=== PATIENT | female | born 1940 | race Caucasian/White ===

== ENCOUNTER 2016-09-19 06:58 | Inpatient (IN) | payer OTHER, BC ==
[2016-09-19] MEDS ORDERED: ALBUTEROL SO4 2.5/IPRATROPIUM 0.5 INH SOL 3 ML VIAL.NEB. NEB ONE ×4 (07:01→09:51)
--- NOTE | 2016-09-19 07:07 | PDOC ---
History of Present Illness - General Chief Complaint: Respiratory Stated Complaint: COPD, SOB Time Seen by Provider: 09/19/16 07:00 History Source: Patient, EMS Exam Limitations: No Limitations - History of Present Illness Initial Comments: 09/19/16 07:02 76 y/o female with increase SOB over last 4 days. Was seen by her PMD and placed on a Z-pack. Pt with cough. Denies fever or chills. No N/V/D/C. No back pain oo chest pain. Brought in via EMS with increase SOB. Given Duoneb x2 and Soulmedrol 125 mg IV before arrival. Patient states to be doing a little better. Timing/Duration: reports: getting worse Severity: reports: moderate Past History - Past Medical History Allergies/Adverse Reactions: Allergies Allergy/AdvReac Type Severity Reaction Status Date / Time Penicillins Allergy Verified 04/17/16 06:23 strawberry Allergy Verified 04/19/16 15:59 Penicillins Allergy Uncoded 09/14/11 09:30 Home Medications: Ambulatory Orders Aspirin [ASA -] 81 mg PO DAILY 03/02/16 Albuterol 2.5/Ipratropium 0.5 [Duoneb -] 1 amp NEB QIDR #10 amp 04/22/16 Amlodipine Besylate [Norvasc -] 5 mg PO DAILY #60 tablet 04/22/16 Montelukast Na [Singulair -] 10 mg PO HS #60 tablet 04/22/16 Escitalopram Oxalate 10 mg PO DAILY #0 tablet 09/17/16 Pantoprazole Sodium 40 mg PO DAILY 09/17/16 Anemia: No Asthma: No Cancer: Yes (BLADDER CANCER) Cardiac Disorders: Yes CVA: No COPD: Yes (HOME O2 AT NIGHT,) CHF: No Dementia: No Diabetes: No GI Disorders: No Disorders: Yes (BLADDER CANCER treated with chemo wash) HTN: No Hypercholesterolemia: Yes Liver Disease: No Psychiatric Problems: Yes (anxiety) Seizures: No Thyroid Disease: No - Surgical History Abdominal Surgery: No Appendectomy: Yes ( CHILD) Cardiac Surgery: No Cholecystectomy: No Lung Surgery: No Neurologic Surgery: No Orthopedic Surgery: Yes (LEFT FOOT SURGERY, r hip surgery) - Family Disease History Family Disease History: Heart Disease: Mother - Reproductive History Dysfunctional Uterine Bleeding: No - Immunization History Immunization Up to Date: Yes - Psycho/Social/Smoking Cessation Hx Anxiety: Yes Suicidal Ideation: No Smoking Status: No Smoking History: Former smoker Years of Tobacco Use: 20 Have you smoked in the past 12 months: Yes Number of Cigarettes Smoked Daily: 1 If you are a former smoker, when did you quit?: 2015 Cigars Per Day: 0 'Breaking Loose' booklet given: 04/17/16 Hx Alcohol Use: No Drug/Substance Use Hx: No Substance Use Type: None Hx Substance Use Treatment: No Review of Systems - Review of Systems Able to Perform ROS?: Yes Is the patient limited Romanian proficient: No Constitutional: No: Chills, Fever, Malaise HEENTM: No: Nose Congestion Respiratory: Yes: Cough, Shortness of Breath, Wheezing. No: Productive cough Cardiac (ROS): No: Chest Pain, Edema, Palpitations, Chest Tightness ABD/GI: No: Diarrhea, Nausea, Vomiting : No: Burning, Dysuria Musculoskeletal: No: Back Pain Neurological: No: Headache, Numbness, Paresthesia All Other Systems: Reviewed and Negative *Physical Exam - Physical Exam General Appearance: Yes: Nourished, Appropriately Dressed, Apparent Distress, Moderate Distress. No: Mild Distress HEENT: positive: EOMI, JR, Normal ENT Inspection, Pharynx Normal. negative: Nasal Congestion, Rhinorrhea, Sinus Tenderness Neck: positive: Trachea midline, Normal Thyroid, Supple. negative: Rigid Respiratory/Chest: positive: Respiratory Distress, Wheezing. negative: Lungs Clear (expiratory wheezing mild, decrease BS b/l on the left), Normal Breath Sounds, Accessory Muscle Use Cardiovascular: positive: Regular Rhythm, S1, S2, Tachycardia. negative: Regular Rate Gastrointestinal/Abdominal: positive: Normal Bowel Sounds, Flat, Soft. negative : Tender, Organomegaly, Pulsatile Mass Lymphatic: negative: Adenopathy, Tenderness, Other Musculoskeletal: positive: Normal Inspection. negative: CVA Tenderness Extremity: positive: Normal Capillary Refill, Normal Inspection, Normal Range of Motion Integumentary: positive: Normal Color, Warm Neurologic: positive: public policy mediator II-XII NML intact, Fully Oriented, Alert, Normal Mood/ Affect (strength 5+/5 b/l in UE and LE, no focal deficits noted), Normal Response, Motor Strength 5/5 Heart Score/ECG Review - ECG Intrepretation Comment:: 09/19/16 07:17 tachycardic 105 - ST and T Non Specific ST-T Wave changes: Yes ED Treatment Course - LABORATORY CBC & Chemistry Diagram: 09/19/16 07:01 09/19/16 07:01 - RADIOLOGY Radiology Studies Ordered: Category Date Time Status CHEST X-RAY PORTABLE* [RAD] Stat Radiology 09/19/16 07:01 Ordered 09/19/16 07:59 CXR, RLL pneumonia, however official read in NAD, unchanged. After DuoNeb treatment pt is feeling better. Will call Hospitalist and admit for pneumonia and COPD exacerbation 09/19/16 08:34 Spoke with Nica, will admit pt for COPD exacerbation, ? early RLL pneumonia Admit to Dr. Monroy service Pt is in agreement with plan. 09/19/16 08:38 *DC/Admit/Observation/Transfer Diagnosis at time of Disposition: COPD with acute exacerbation Pneumonia Qualifiers: Pneumonia type: due to unspecified organism Laterality: right Lung location: lower lobe of lung Qualified Code(s): J18.1 - Lobar pneumonia, unspecified organism - Discharge Dispostion Condition at time of disposition: Guarded Admit: Yes - Referrals Referrals: Cameron Floyd MD [Primary Care Provider] -
[2016-09-19 07:12] VITALS: BMI 24.4
[2016-09-19] MEDS ORDERED: ACETAMINOPHEN 325 MG TABLET (FP) PO ONE (07:15)
[2016-09-19] MEDS ORDERED: ACETAMINOPHEN 325 MG TABLET (FP) ONE (07:16)
[2016-09-19] MEDS ORDERED: LEVOFLOXACIN 750 MG IVPB 150 ML IVPB ONE ×2 (07:42→07:43)
[2016-09-19 07:56] LABS: EOSINOPHIL 2.9 % (0-4.5); MCH 30.1 pg (25.7-33.7); MEAN CELL VOLUME 88.3 fl (80-96); NEUTROPHILS 59.8 % (42.8-82.8); PLATELET COUNT 216 K/MM3 (134-434); RDW 13.6 % (11.6-15.6); WHITE BLOOD COUNT 6.8 K/mm3 (4.0-10.0)
[2016-09-19 08:06] LABS: ALK PHOS 79 U/L (32-92); ANION GAP 5 (8-16); BILIRUBIN,TOTAL 0.4 mg/dl (0.2-1.0); CALCIUM 8.5 mg/dl (8.4-10.2); CO2 29 mmol/L (22-28); CPK(DFH) 103 IU/L (26-140); CREATININE 0.8 mg/dl (0.6-1.3); GLUCOSE,RANDOM 169 mg/dl (74-106); SGOT/AST 28 U/L (10-42); SGPT/ALT 19 U/L (10-40); TOT PROT 6.5 g/dl (6.4-8.3)
[2016-09-19 08:22] LABS: TROPONIN I (DFP) < 0.03 ng/ml (0.03-0.50)
[2016-09-19] MEDS ORDERED: ONDANSETRON 4 MG/2 ML VIAL IVPB PRN (08:44)
[2016-09-19] MEDS ORDERED: ACETAMINOPHEN 325 MG TABLET (FP) PO PRN (08:44)
--- NOTE | 2016-09-19 08:51 | HP ---
CHIEF COMPLAINT: Shortness of breath PCP: Dr. Floyd Campaign Marketing Manager: Dr. Deluca HISTORY OF PRESENT ILLNESS: This is a 76 year old female with a history of COPD and bladder ca (in remission) who presented to the ED today with shortness of breath. She had been coughing and feeling progressively short of breath for the past four days and was started on azithromycin by her PCP, but overnight became suddenly worse, prompting her to present to the ED today. She denies fevers/ chills, chest pain, LE edema, any other symptoms. ER course was notable for: (1) EKG: Sinus tachycardia 105bpm (2) CXR: No infiltrate (3) RR 26 on arrival (4) Oral temp 100.2 Recent Travel: None PAST MEDICAL HISTORY: As above PAST SURGICAL HISTORY: Hip replacement Social History: Lives in two-family house with daughter, who helps with ADLs. 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 Smokin pack-year history Alcohol: None Family History: Brother of MD at 83, mother had CABG, father of MD at 84 Allergies Penicillins Allergy (Verified 04/17/16 06:23) strawberry Allergy (Verified 04/19/16 15:59) Penicillins Allergy (Uncoded 09/14/11 09:30) HOME MEDICATIONS: Home Medications Medication Instructions Recorded Aspirin [ASA -] 81 mg PO DAILY 03/02/16 Albuterol 2.5/Ipratropium 0.5 1 amp [facility] QIDR #10 amp 04/22/16 [Duoneb -] Amlodipine Besylate [Norvasc -] 5 mg PO DAILY #60 tablet 04/22/16 Montelukast Na [Singulair -] 10 mg PO HS #60 tablet 04/22/16 Escitalopram Oxalate 10 mg PO DAILY #0 tablet 09/17/16 Pantoprazole Sodium 40 mg PO DAILY 09/17/16 REVIEW OF SYSTEMS CONSTITUTIONAL: Absent: fever, chills, diaphoresis, generalized weakness, malaise, loss of appetite, weight change HEENT: Absent: rhinorrhea, nasal congestion, throat pain, throat swelling, difficulty swallowing, mouth swelling, ear pain, eye pain, visual changes CARDIOVASCULAR: Absent: chest pain, syncope, palpitations, irregular heart rate, lightheadedness , peripheral edema RESPIRATORY: See HPI GASTROINTESTINAL: Absent: abdominal pain, abdominal distension, nausea, vomiting, diarrhea, constipation, melena, hematochezia GENITOURINARY: Absent: dysuria, frequency, urgency, hesitancy, hematuria, flank pain, genital pain MUSCULOSKELETAL: Absent: myalgia, arthralgia, joint swelling, back pain, neck pain SKIN: Absent: rash, itching, pallor HEMATOLOGIC/IMMUNOLOGIC: Absent: easy bleeding, easy bruising, lymphadenopathy, frequent infections ENDOCRINE: Absent: unexplained weight gain, unexplained weight loss, heat intolerance, cold intolerance NEUROLOGIC: Absent: headache, focal weakness or paresthesias, dizziness, unsteady gait, seizure, mental status changes, bladder or bowel incontinence PSYCHIATRIC: Anxiety Absent: depression, suicidal or homicidal ideation, hallucinations. PHYSICAL EXAMINATION Vital Signs - 24 hr 09/19/16 09/19/16 07:08 07:48 Temperature 100.2 F H 100.2 F H Pulse Rate 105 H Pulse Rate [ 110 H Left] Respiratory 26 H 22 Rate Blood Pressure 150/79 Blood Pressure 92/74 [Right Arm] O2 Sat by Pulse 100 99 Oximetry (%) GENERAL: Awake, alert, and fully oriented, in no acute distress. EYES: Pupils equal, round and reactive to light, extraocular movements intact, sclera anicteric, conjunctiva clear. No lid lag. EARS, NOSE, THROAT: Ears normal, nares patent, oropharynx clear without exudates. Moist mucous membranes. NECK: Normal range of motion, supple without lymphadenopathy, JVD, or masses. LUNGS: Tachypneic with pursed-lip breathing. Expiratory wheezing with diminished air entry bilaterally. HEART: Regular rate and rhythm, normal S1 and S2 without murmur, rub or gallop. ABDOMEN: Soft, nontender, not distended, normoactive bowel sounds, no guarding, no rebound, no masses. No hepatomegaly or splenomegaly. MUSCULOSKELETAL: Normal range of motion at all joints. No bony deformities or tenderness. No CVA tenderness. UPPER EXTREMITIES: 2+ pulses, warm, well-perfused. No cyanosis. No clubbing. No peripheral edema. LOWER EXTREMITIES: 2+ pulses, warm, well-perfused. No calf tenderness. Trace RLE edema, + calf tenderness bilaterally. NEUROLOGICAL: Cranial nerves II-XII intact. Normal speech. Normal gait. PSYCHIATRIC: Anxious affect. Cooperative. Good eye contact. SKIN: Warm, dry, normal turgor, no rashes or lesions noted, normal capillary refill. Laboratory Results - last 24 hr 09/19/16 09/19/16 09/19/16 07:01 07:01 07:01 WBC 6.8 RBC 4.29 Hgb 12.9 Hct 37.9 MCV 88.3 MCHC 34.0 RDW 13.6 Plt Count 216 MPV 8.0 Neutrophils % 59.8 D Lymphocytes % 26.3 D Monocytes % 10.0 Eosinophils % 2.9 D Basophils % 1.0 D Sodium 138 Potassium 3.6 Chloride 104 Carbon Dioxide 29 H Anion Gap 5 L BUN 12 D Creatinine 0.8 D Creat Clearance w eGFR > 60 Random Glucose 169 H D Calcium 8.5 Total Bilirubin 0.4 AST 28 D ALT 19 D Alkaline Phosphatase 79 D Creatine Kinase 103 Troponin I < 0.03 L Total Protein 6.5 Albumin 4.0 ASSESSMENT/PLAN: 76 year old female with COPD exacerbation and likely URI. Problem List - Problem (1) COPD with acute exacerbation Assessment/Plan: -DuoNebs q6h standing -Hold Spiriva while on DuoNebs -Continue Singulair, Symbicort -Solu-Medrol 40mg IVPB q8h, taper as tolerated -Low grade fever; possible CAP- continue Levaquin -Pulmonary consultation requested Code(s): J44.1 - CHRONIC OBSTRUCTIVE PULMONARY DISEASE W (ACUTE) EXACERBATION (2) Pneumonia Assessment/Plan: -Suspected -Treat as above -Send sputum culture, urine antigens -Follow up blood cultures Code(s): J18.9 - PNEUMONIA, UNSPECIFIED ORGANISM Qualifiers: Pneumonia type: due to unspecified organism Laterality: right Lung location: lower lobe of lung Qualified Code(s): J18.1 - Lobar pneumonia, unspecified organism (3) Anxiety Assessment/Plan: -Klonopin 0.5mg q6h prn Code(s): F41.9 - ANXIETY DISORDER, UNSPECIFIED (4) Bladder cancer Assessment/Plan: -No active issues Code(s): C67.9 - MALIGNANT NEOPLASM OF BLADDER, UNSPECIFIED Qualifiers: Bladder location: unspecified site Qualified Code(s): C67.9 - Malignant neoplasm of bladder, unspecified (5) Elevated lactic acid level Assessment/Plan: -Repeat this afternoon Code(s): R79.89 - OTHER SPECIFIED ABNORMAL FINDINGS OF BLOOD CHEMISTRY (6) DVT prophylaxis Assessment/Plan: -Ambulation with PT -Lovenox ADDENDM 15:45: Patient tachypneic with poor air movement. SpO2 is 100% on 3L. Will give stat DuoNeb, MgSO4, reassess. There is some asymmetric LE edema and HR is 116; will obtain bilat duplex u/s to r/o DVT. Trial of Bi-pap. Re- evaluation by night team. Code(s): MIT5101 - Visit type - Emergency Visit Emergency Visit: Yes ED Registration Date: 09/19/16 Care time: The patient presented to the Emergency Department on the above date and was hospitalized for further evaluation of their emergent condition. - New Patient This patient is new to me today: Yes Date on this admission: 09/19/16 - Critical Care Critical Care patient: No
[2016-09-19] MEDS ORDERED: BUDESONIDE/FORMETEROL FUMARATE 160/4.5 mcg INHALER IH SCH (09:00)
[2016-09-19] MEDS ORDERED: SODIUM CHLORIDE 0.9% 1000 ML INFUS.BAG IV SCH (09:15)
[2016-09-19] MEDS ORDERED: ALPRAZolam 0.25 MG TABLET PO STA (09:51)
[2016-09-19] MEDS ORDERED: ALPRAZolam 0.25 MG TABLET ONE (09:52)
[2016-09-19] MEDS ORDERED: TIOTROPIUM BROMIDE 18 MCG/INH (DEVICE W/ 5 CAPSULES) IH SCH (10:00)
[2016-09-19] MEDS ORDERED: clonazePAM 0.5 MG TABLET PO PRN (11:03)
[2016-09-19] MEDS: ALBUTEROL SO4 2.5/IPRATROPIUM 0.5 INH SOL 3 ML VIAL.NEB. NEB SCH ×2 (12:00→17:49)
[2016-09-19] MEDS: HEPARIN NA (PORCINE) 5,000 UNITS/ML 1ML VIAL SQ SCH (12:30)
[2016-09-19] MEDS: ESCITALOPRAM OXALATE 10 MG TABLET (FP) PO SCH (12:30)
[2016-09-19] MEDS: ASPIRIN 81 MG CHEWABLE TABLETS PO SCH (12:30)
[2016-09-19] MEDS: PANTOPRAZOLE 40 MG TABLET (FP) PO SCH (12:45)
[2016-09-19] MEDS: DOCUSATE SODIUM 100 MG CAPSULE (FP) PO SCH ×2 (14:00→21:43)
[2016-09-19] MEDS ORDERED: MAGNESIUM SULF 50% (8.12 MEQ/2 ML-1 GM VIAL) IVPB ONE (15:46)
[2016-09-19 16:15] LABS: URINE APPEARANCE Clear; URINE BILIRUBIN Negative (NEGATIVE); URINE GLUCOSE (UA) 3+ (NEGATIVE); URINE KETONE Negative (NEGATIVE); URINE LEUK ESTERASE Negative (NEGATIVE); URINE NITRITE Negative (NEGATIVE); URINE PROTEIN Negative (NEGATIVE); URINE UROBILINOGEN 0.2 E.U/dl (0.2-1.0)
[2016-09-19 16:28] LABS: URINE BLOOD TRACE (NEGATIVE); URINE COLOR YELLOW
[2016-09-19 17:16] LABS: URINE HYALINE CAST 0-1 /lpf; URINE WBC 0-3 (3-5)
[2016-09-19] MEDS: methylPREDNISolone NA SUCC 40 MG/1 ML VIAL IVPB SCH (17:50)
[2016-09-19] MEDS ORDERED: RACEPINEPHRINE IH SOL 2.25% 11.25 MG/0.5 ML VIAL IH ONE (17:51)
[2016-09-19] MEDS: ATORVASTATIN CA 10 MG TABLET (FP) PO SCH (21:44)
[2016-09-19] MEDS: MONTELUKAST NA 10 MG TABLET PO SCH (21:44)
[2016-09-20] MEDS ORDERED: SODIUM CHLORIDE 500 ML IV STA (01:25)
[2016-09-20] MEDS: methylPREDNISolone NA SUCC 40 MG/1 ML VIAL IVPB SCH ×4 (02:04→23:07)
[2016-09-20] MEDS: ALBUTEROL SO4 2.5/IPRATROPIUM 0.5 INH SOL 3 ML VIAL.NEB. NEB SCH ×2 (02:05→06:56)
[2016-09-20] MEDS: HEPARIN NA (PORCINE) 5,000 UNITS/ML 1ML VIAL SQ SCH (02:06)
[2016-09-20] MEDS: DOCUSATE SODIUM 100 MG CAPSULE (FP) PO SCH ×3 (06:56→23:07)
--- NOTE | 2016-09-20 08:39 | PN ---
Physical Exam: SUBJECTIVE: Patient seen and examined, pt is on bipap reports shortness of breath, pt denies any chest pain OBJECTIVE: patient is a 76 year old female with a history of COPD and bladder ca (in remission). patient was admitted from the emergency department for COPD exacerbation Vital Signs Period Temp Pulse Resp BP Sys/Almeida Pulse Ox Last 24 Hr 97.6 F-99.2 F 77-109 16-22 112-141/51-64 98-100 GENERAL: The patient is awake, alert, and fully oriented, anxious. HEAD: Normal with no signs of trauma. EYES: PERRL, extraocular movements intact, sclera anicteric, conjunctiva clear. No ptosis. ENT: Ears normal, nares patent, oropharynx clear without exudates, moist mucous membranes. NECK: Trachea midline, full range of motion, supple. LUNGS: Breath sounds equal, course rhonchi bilaterally to apexes diminished bases slight inspiratory wheeze noted no crackles, no accessory muscle use. HEART: Regular rate and rhythm, S1, S2 without murmur, rub or gallop. ABDOMEN: Soft, nontender, nondistended, normoactive bowel sounds, no guarding, no rebound, no hepatosplenomegaly, no masses. EXTREMITIES: 2+ pulses, warm, well-perfused, no edema. NEUROLOGICAL: Cranial nerves II through XII grossly intact. Normal speech, gait not observed. PSYCH: Normal mood, normal affect. SKIN: Warm, dry, normal turgor, no rashes or lesions noted Laboratory Results - last 24 hr 09/19/16 09/19/16 09/19/16 16:00 16:50 22:55 D-Dimer < 200 Lactic Acid 2.418 H* Urine Color Yellow Urine Appearance Clear Urine pH 5.0 Ur Specific [place] 1.015 Urine Protein Negative Urine Glucose (UA) 3+ H Urine Ketones Negative Urine Blood Trace H Urine Nitrite Negative Urine Bilirubin Negative Urine Urobilinogen 0.2 e.u/dl Ur Leukocyte Esterase Negative Urine RBC 3-5 Urine WBC 0-3 Ur Epithelial Cells 0-3 Hyaline Casts 0-1 09/20/16 02:00 D-Dimer Lactic Acid 1.151 Urine Color Urine Appearance Urine pH Ur Specific [place] Urine Protein Urine Glucose (UA) Urine Ketones Urine Blood Urine Nitrite Urine Bilirubin Urine Urobilinogen Ur Leukocyte Esterase Urine RBC Urine WBC Ur Epithelial Cells Hyaline Casts Active Medications Active Medications Generic Name Dose Route Start Last Admin Trade Name Freq PRN Reason Stop Dose Admin Acetaminophen 650 mg 09/19/16 08:44 Tylenol - PO Q6H PRN FEVER OR PAIN Alprazolam 0.25 mg 09/20/16 10:13 Xanax - PO Q8H PRN ANXIETY Amlodipine Besylate 5 mg 09/19/16 10:00 Norvasc - PO DAILY KAREN Arformoterol Tartrate 1 amp 09/20/16 10:00 09/20/16 09:22 Brovana (Restricted To Pulmonology/Resp) - NEB 1 amp BID KAREN Administration Aspirin 81 mg 09/19/16 12:30 09/19/16 12:30 Asa - PO 81 mg DAILY KAREN Administration Atorvastatin Calcium 10 mg 09/19/16 22:00 09/19/16 21:44 Lipitor - PO 10 mg HS KAREN Administration Docusate Sodium 100 mg 09/19/16 14:00 09/20/16 06:56 Colace - PO 100 mg TID KAREN Administration Escitalopram Oxalate 10 mg 09/19/16 12:30 09/19/16 12:30 Lexapro - PO 10 mg DAILY KAREN Administration Heparin Sodium (Porcine) 5,000 unit 09/19/16 12:30 09/20/16 02:06 Heparin - SQ 5,000 unit Q8H-IV KAREN Administration Levofloxacin 150 mls @ 100 mls/hr 09/20/16 10:00 Levaquin 750 Mg Premixed Ivpb - IVPB DAILY KAREN Methylprednisolone Sodium Succinate 40 mg 09/20/16 09:00 Solu-Medrol - IVPB Q6H-IV KAREN Montelukast Sodium 10 mg 09/19/16 22:00 09/19/16 21:44 Singulair - PO 10 mg HS KAREN Administration Ondansetron HCl 4 mg 09/19/16 08:44 Zofran Injection IVPB Q6H PRN NAUSEA Pantoprazole Sodium 40 mg 09/19/16 12:45 09/19/16 12:45 Protonix - PO 40 mg DAILY KAREN Administration Sodium Chloride 1,701 ml 09/19/16 09:15 09/19/16 09:18 Normal Saline - IV 1,701 ml ONCE KAREN Administration Microbiology 09/19/16 16:00 Urine For Antigen Detection Legionella Antigen - Final, negative 09/19/16 16:00 Urine For Antigen Detection Streptococcus pneumoniae Antigen (M - Final, negative 09/19/16 07:11 Blood - Peripheral Venous Blood Culture - Preliminary NO GROWTH OBTAINED AFTER 24 HOURS, INCUBATION TO CONTINUE FOR 4 DAYS. 09/19/16 07:11 Blood - Peripheral Venous Blood Culture - Preliminary NO GROWTH OBTAINED AFTER 24 HOURS, INCUBATION TO CONTINUE FOR 4 DAYS. 09/19/16 09:45 Nasopharyngeal Swab Respiratory Virus Panel - Preliminary 09/19/16 09:45 Nasopharyngeal Swab Influenza Types A,B Antigen (NAJMA) - Final , negative 09/19/16 09:45 Nasopharyngeal Swab - Final IMAGING chest x-ray (09/20/2016) no effusions no infiltrates noted Bilateral lower extremity duplex no DVT noted. ASSESSMENT/PLAN: 1 pulmonary: COPD exacerbation - Wheezing noted on exam tachypnea noted will increase Solu-Medrol to every 6 hours - start broVona - continue prn bipap - pulmonary consulted and following PNA - repeat chest x-ray today in no infiltrates no effusions noted - Treating for suspected bronchitis continue Levaquin - Her fever curve 2) psych anxiety - xanax 0.25mg tid prn f/e/n - full liquid diet - Replete electrolytes when necessary PPX - scd - pt - lovenox - protonix - oob - pt dispo: requires inpatient care Visit type - Emergency Visit Emergency Visit: Yes ED Registration Date: 09/19/16 Care time: The patient presented to the Emergency Department on the above date and was hospitalized for further evaluation of their emergent condition. - New Patient This patient is new to me today: No - Critical Care Critical Care patient: No - Discharge Referral Referred to [facility] No
[2016-09-20 08:54] LABS: ALBUMIN 3.7 g/dl (3.5-5.0); ALK PHOS 64 U/L (32-92); CALCIUM 8.2 mg/dl (8.4-10.2); COCKROFT - GAULT 69.1645; CREATININE 0.6 mg/dl (0.6-1.3); GLUCOSE,RANDOM 214 mg/dl (74-106); MAGNESIUM 2.4 mg/dL (1.8-2.4); SGOT/AST 25 U/L (10-42); SGPT/ALT 19 U/L (10-40); TOT PROT 6.1 g/dl (6.4-8.3)
--- NOTE | 2016-09-20 09:07 | EKG ---
Test Reason : Blood Pressure : / mmHG Vent. Rate : 105 BPM Atrial Rate : 105 BPM P-R Int : 112 ms QRS Dur : 094 ms QT Int : 344 ms P-R-T Axes : 069 068 086 degrees QTc Int : 454 ms SINUS TACHYCARDIA POSSIBLE LEFT ATRIAL ENLARGEMENT NONSPECIFIC ST AND T WAVE ABNORMALITY ABNORMAL ECG WHEN COMPARED WITH ECG OF 17-APR-2016 07:04, NO SIGNIFICANT CHANGE WAS FOUND Confirmed by HERNANDO CROUCH MD ([id number]) on 09/20/2016 9:07:37 AM Referred By: MD POWERS Confirmed By:HERNANDO CROUCH MD
[2016-09-20 09:14] LABS: BASOPHIL 0.2 % (0-2.0); MCH 30.5 pg (25.7-33.7); MCHC 35.1 g/dl (32.0-36.0); MEAN CELL VOLUME 87.1 fl (80-96); MEAN PLT VOLUME 8.3 fl (7.5-11.1); PLATELET COUNT 184 K/MM3 (134-434); RDW 13.5 % (11.6-15.6); WHITE BLOOD COUNT 5.5 K/mm3 (4.0-10.0)
[2016-09-20] MEDS: ARFORMOTEROL TARTRATE 15 MCG/2 ML VIAL NEB SCH ×2 (09:22→23:05)
[2016-09-20] MEDS: ESCITALOPRAM OXALATE 10 MG TABLET (FP) PO SCH (10:00)
[2016-09-20] MEDS: PANTOPRAZOLE 40 MG TABLET (FP) PO SCH (10:00)
[2016-09-20] MEDS: amLODIPine BESYLATE 5 MG TABLET (FP) PO SCH (10:00)
[2016-09-20] MEDS: ASPIRIN 81 MG CHEWABLE TABLETS PO SCH (10:00)
[2016-09-20] MEDS: LEVOFLOXACIN 750 MG IVPB 150 ML IVPB SCH (10:00)
--- NOTE | 2016-09-20 10:12 | PN ---
Progress Note (short form) - Note Progress Note: PULMONARY CONSULTATION DICTATED 09/20/16 IMP ACUTE ON CHRONIC HYPOXEMIC RESPIRATORY FAILURE ADVANCED COPD URI H/O BLADDER CA ELEVATED LACTATE ANXIETY PLAN IV STEROIDS INHALED BRONCHODILATORS ANTIBIOTICS O2 BIPAP TREND LACTATE XANAX PRN DR SAAB Problem List - Problems (1) COPD with acute exacerbation Code(s): J44.1 - CHRONIC OBSTRUCTIVE PULMONARY DISEASE W (ACUTE) EXACERBATION (2) DVT prophylaxis Code(s): [id number] - (3) Elevated lactic acid level Code(s): R79.89 - OTHER SPECIFIED ABNORMAL FINDINGS OF BLOOD CHEMISTRY (4) Anxiety Code(s): F41.9 - ANXIETY DISORDER, UNSPECIFIED (5) Bladder cancer Code(s): C67.9 - MALIGNANT NEOPLASM OF BLADDER, UNSPECIFIED Qualifiers: Bladder location: unspecified site Qualified Code(s): C67.9 - Malignant neoplasm of bladder, unspecified (6) Acute hypoxemic respiratory failure Code(s): J96.01 - ACUTE RESPIRATORY FAILURE WITH HYPOXIA
[2016-09-20 10:14] LABS: BILIRUBIN,TOTAL 0.3 mg/dl (0.2-1.0)
[2016-09-20 10:15] LABS: ANION GAP 9 (8-16); CO2 23 mmol/L (22-28)
--- NOTE | 2016-09-20 10:19 | PN ---
Progress Note, Physician History of Present Illness: PULMONARY ALERT,OOB-CHAIR,LESS DYSPNEIC,STILL MILDLY CONGESTED - Current Medication List Current Medications: Active Medications Acetaminophen (Tylenol -) 650 mg PO Q6H PRN PRN Reason: FEVER OR PAIN Amlodipine Besylate (Norvasc -) 5 mg PO DAILY [facility] Arformoterol Tartrate (Brovana (Restricted To Pulmonology/Resp) -) 1 amp NEB BID [facility] Last Admin: 09/20/16 09:22 Dose: 1 amp Aspirin (Asa -) 81 mg PO DAILY [facility] Last Admin: 09/19/16 12:30 Dose: 81 mg Atorvastatin Calcium (Lipitor -) 10 mg PO HS [facility] Last Admin: 09/19/16 21:44 Dose: 10 mg Docusate Sodium (Colace -) 100 mg PO TID [facility] Last Admin: 09/20/16 06:56 Dose: 100 mg Escitalopram Oxalate (Lexapro -) 10 mg PO DAILY [facility] Last Admin: 09/19/16 12:30 Dose: 10 mg Heparin Sodium (Porcine) (Heparin -) 5,000 unit SQ Q8H-IV [facility] Last Admin: 09/20/16 02:06 Dose: 5,000 unit Levofloxacin (Levaquin 750 Mg Premixed Ivpb -) 150 mls @ 100 mls/hr IVPB DAILY [facility] Methylprednisolone Sodium Succinate (Solu-Medrol -) 40 mg IVPB Q6H-IV [facility] Montelukast Sodium (Singulair -) 10 mg PO HS [facility] Last Admin: 09/19/16 21:44 Dose: 10 mg Ondansetron HCl (Zofran Injection) 4 mg IVPB Q6H PRN PRN Reason: NAUSEA Pantoprazole Sodium (Protonix -) 40 mg PO DAILY [facility] Last Admin: 09/19/16 12:45 Dose: 40 mg Sodium Chloride (Normal Saline -) 1,701 ml IV ONCE [facility] Last Admin: 09/19/16 09:18 Dose: 1,701 ml - Objective Vital Signs: Vital Signs Temperature 97.6 F 09/20/16 06:00 Pulse Rate 77 09/20/16 06:00 Respiratory Rate 18 09/20/16 09:00 Blood Pressure 118/63 09/20/16 06:00 O2 Sat by Pulse Oximetry (%) 100 09/20/16 06:05 Constitutional: Yes: Well Nourished, Calm Eyes: Yes: WNL HENT: Yes: WNL Neck: Yes: WNL Cardiovascular: Yes: Regular Rate and Rhythm, S1, S2 Respiratory: Yes: Wheezes (EDUARD WHEEZES) Gastrointestinal: Yes: Normal Bowel Sounds, Soft Extremities: Yes: WNL Edema: No Labs: CBC, BMP 09/20/16 08:00 Problem List - Problems (1) COPD with acute exacerbation Code(s): J44.1 - CHRONIC OBSTRUCTIVE PULMONARY DISEASE W (ACUTE) EXACERBATION (2) DVT prophylaxis Code(s): [id number] - (3) Elevated lactic acid level Code(s): R79.89 - OTHER SPECIFIED ABNORMAL FINDINGS OF BLOOD CHEMISTRY (4) Anxiety Code(s): F41.9 - ANXIETY DISORDER, UNSPECIFIED (5) Bladder cancer Code(s): C67.9 - MALIGNANT NEOPLASM OF BLADDER, UNSPECIFIED Qualifiers: Bladder location: unspecified site Qualified Code(s): C67.9 - Malignant neoplasm of bladder, unspecified (6) Acute hypoxemic respiratory failure Code(s): J96.01 - ACUTE RESPIRATORY FAILURE WITH HYPOXIA
--- NOTE | 2016-09-20 11:31 | CONS ---
DATE OF CONSULTATION: 09/20/2016 REFERRING PHYSICIAN: Piper Morris NP HISTORY: The patient is a 76-year-old white female known from previous hospitalizations as well as office follow up who has advanced COPD on O2, history of bladder cancer currently in remission admitted to [facility] with the complaint of a 2-day history of increasing shortness of breath, cough productive of yellowish sputum as well as intermittent chills and fever. The patient did not complain of any chest pain, nausea, vomiting, or diaphoresis. Apparently, she was placed on Zithromax by her primary care. Apparently, the evening of admission her symptoms worsened at which time she presented to the emergency room. In the emergency room, she was noted to be mildly febrile with a temperature of 100.2. She was found to be in [id number] respiratory distress at which time she was placed on BiPAP with good response. The patient denies hemoptysis, denies any chest pain. Some palpitations. Denies any nausea, vomiting, or diaphoresis. She has a history of tobacco use a few years ago. There is no history of occupational exposure to chemicals or fumes. PAST MEDICAL HISTORY: Again includes advanced COPD on O2, history of hip replacement, history of bladder cancer. CURRENT MEDICATIONS: Includes Zofran, Solu-Medrol, Tylenol, Levaquin, Lexapro, Klonopin, Brovana, Colace, Norvasc, Lipitor, Singulair, aspirin, Protonix. REVIEW OF SYSTEMS: Positive dyspnea, positive cough. No chest pain, no palpitations, no abdominal pain. Positive fever, positive chills. No hemoptysis. PHYSICAL EXAMINATION: General: The patient is an elderly white female, thin, well developed, awake, alert. Currently on BiPAP. She is comfortable. Vital Signs: She is currently afebrile, blood pressure 118/63, respiratory rate 18, O2 saturation 100%. HEENT: Normocephalic and atraumatic. Neck: Supple. Heart: Regular S1, S2. Chest: Diminished breath sounds bilaterally. Abdomen: Soft. Bowel sounds positive. Extremities: No cyanosis or edema. DIAGNOSTICS: WBCs 5.5, hemoglobin 11.4, hematocrit 32.5 with a platelet count of 184,000. Lactate level is 2.41, D-dimer less than 200. Chest x-ray reveals no infiltrates, no effusions. IMPRESSION: 1. Acute on chronic hypoxemic respiratory failure secondary to decompensated chronic obstructive pulmonary disease. 2. Possible underlying infectious process, possible viral, upper respiratory infection. 3. History of bladder cancer. 4. Elevated lactate most likely secondary to work of breathing. PLAN: IV steroids. Inhaled bronchodilators. Supplemental O2 via BiPAP as needed. Antibiotic therapy. Trend lactate. I will follow closely with you. EMILIANO SAAB M.D. ANA [id number]
[2016-09-20] MEDS: ALPRAZolam 0.25 MG TABLET PO PRN (18:00)
[2016-09-20] MEDS: ALBUTEROL SO4 0.083% IH SOL 2.5 MG/3 ML VIAL.NEB. NEB PRN (18:00)
[2016-09-20] MEDS: ATORVASTATIN CA 10 MG TABLET (FP) PO SCH (23:06)
[2016-09-20] MEDS: MONTELUKAST NA 10 MG TABLET PO SCH (23:06)
[2016-09-21] MEDS: methylPREDNISolone NA SUCC 40 MG/1 ML VIAL IVPB SCH ×4 (03:00→21:37)
[2016-09-21] MEDS: DOCUSATE SODIUM 100 MG CAPSULE (FP) PO SCH ×3 (06:00→21:37)
[2016-09-21 08:39] LABS: BASOPHIL 0.2 % (0-2.0); MCH 29.9 pg (25.7-33.7); MCHC 33.9 g/dl (32.0-36.0); MEAN CELL VOLUME 88.3 fl (80-96); MEAN PLT VOLUME 8.5 fl (7.5-11.1); NEUTROPHILS 93.3 % (42.8-82.8); PLATELET COUNT 179 K/MM3 (134-434); RDW 13.6 % (11.6-15.6); WHITE BLOOD COUNT 6.2 K/mm3 (4.0-10.0)
[2016-09-21 08:52] LABS: ALBUMIN 3.7 g/dl (3.5-5.0); ALK PHOS 56 U/L (32-92); ANION GAP 7 (8-16); BILIRUBIN,TOTAL 0.5 mg/dl (0.2-1.0); CALCIUM 8.4 mg/dl (8.4-10.2); CO2 26 mmol/L (22-28); CREATININE 0.6 mg/dl (0.6-1.3); GLUCOSE,RANDOM 213 mg/dl (74-106); MAGNESIUM 2.3 mg/dL (1.8-2.4); PHOSPHOROUS 2.4 mg/dl (2.5-4.6); SGOT/AST 21 U/L (10-42); SGPT/ALT 18 U/L (10-40)
--- NOTE | 2016-09-21 09:26 | PN ---
Progress Note, Physician History of Present Illness: pulmonary alert,on bipap,less dyspneic - Current Medication List Current Medications: Active Medications Acetaminophen (Tylenol -) 650 mg PO Q6H PRN PRN Reason: FEVER OR PAIN Albuterol Sulfate (Ventolin 0.083% Nebulizer Soln -) 1 amp NEB Q4H PRN PRN Reason: SHORT OF BREATH/WHEEZING Last Admin: 09/20/16 18:00 Dose: 1 amp Alprazolam (Xanax -) 0.25 mg PO Q8H PRN PRN Reason: ANXIETY Last Admin: 09/20/16 18:00 Dose: 0.25 mg Amlodipine Besylate (Norvasc -) 5 mg PO DAILY [facility] Last Admin: 09/20/16 10:00 Dose: 5 mg Arformoterol Tartrate (Brovana (Restricted To Pulmonology/Resp) -) 1 amp NEB BID [facility] Last Admin: 09/20/16 23:05 Dose: 1 amp Aspirin (Asa -) 81 mg PO DAILY [facility] Last Admin: 09/20/16 10:00 Dose: 81 mg Atorvastatin Calcium (Lipitor -) 10 mg PO HS [facility] Last Admin: 09/20/16 23:06 Dose: 10 mg Docusate Sodium (Colace -) 100 mg PO TID [facility] Last Admin: 09/20/16 23:07 Dose: 100 mg Enoxaparin Sodium (Lovenox -) 40 mg SQ DAILY [facility] Escitalopram Oxalate (Lexapro -) 10 mg PO DAILY [facility] Last Admin: 09/20/16 10:00 Dose: 10 mg Levofloxacin (Levaquin 750 Mg Premixed Ivpb -) 150 mls @ 100 mls/hr IVPB DAILY [facility] Last Admin: 09/20/16 10:00 Dose: 100 mls/hr Methylprednisolone Sodium Succinate (Solu-Medrol -) 40 mg IVPB Q6H-IV [facility] Last Admin: 09/20/16 23:07 Dose: 40 mg Montelukast Sodium (Singulair -) 10 mg PO HS [facility] Last Admin: 09/20/16 23:06 Dose: 10 mg Ondansetron HCl (Zofran Injection) 4 mg IVPB Q6H PRN PRN Reason: NAUSEA Pantoprazole Sodium (Protonix -) 40 mg PO DAILY [facility] Last Admin: 09/20/16 10:00 Dose: 40 mg Tiotropium [place] (Spiriva -) 1 puff IH DAILY [facility] - Objective Vital Signs: Vital Signs Temperature 97.6 F 09/21/16 06:00 Pulse Rate 95 H 09/21/16 06:00 Respiratory Rate 16 09/21/16 06:00 Blood Pressure 113/74 09/21/16 06:00 O2 Sat by Pulse Oximetry (%) 99 09/21/16 06:42 Constitutional: Yes: Well Nourished, Calm Eyes: Yes: WNL HENT: Yes: WNL Neck: Yes: WNL Cardiovascular: Yes: Regular Rate and Rhythm, S1, S2 Respiratory: Yes: Diminished Gastrointestinal: Yes: Normal Bowel Sounds, Soft Extremities: Yes: WNL Edema: No Labs: CBC, BMP 09/21/16 07:00 09/21/16 07:00 Laboratory Tests 09/20/16 02:00 Lactic Acid 1.151 Problem List - Problems (1) COPD with acute exacerbation Code(s): J44.1 - CHRONIC OBSTRUCTIVE PULMONARY DISEASE W (ACUTE) EXACERBATION (2) DVT prophylaxis Code(s): [id number] - (3) Elevated lactic acid level Code(s): R79.89 - OTHER SPECIFIED ABNORMAL FINDINGS OF BLOOD CHEMISTRY (4) Anxiety Code(s): F41.9 - ANXIETY DISORDER, UNSPECIFIED (5) Bladder cancer Code(s): C67.9 - MALIGNANT NEOPLASM OF BLADDER, UNSPECIFIED Qualifiers: Bladder location: unspecified site Qualified Code(s): C67.9 - Malignant neoplasm of bladder, unspecified (6) Acute hypoxemic respiratory failure Code(s): J96.01 - ACUTE RESPIRATORY FAILURE WITH HYPOXIA Assessment/Plan IMP ACUTE ON CHRONIC HYPOXEMIC RESPIRATORY FAILURE ADVANCED COPD URI H/O BLADDER CA ELEVATED LACTATE normal ANXIETY PLAN IV STEROIDS INHALED BRONCHODILATORS ANTIBIOTICS O2 BIPAP XANAX PR[address] DR SAAB Problem List - Problems (1) COPD with acute exacerbation Code(s): J44.1 - CHRONIC OBSTRUCTIVE PULMONARY DISEASE W (ACUTE) EXACERBATION (2) DVT prophylaxis Code(s): [id number] - (3) Elevated lactic acid level Code(s): R79.89 - OTHER SPECIFIED ABNORMAL FINDINGS OF BLOOD CHEMISTRY (4) Anxiety Code(s): F41.9 - ANXIETY DISORDER, UNSPECIFIED (5) Bladder cancer Code(s): C67.9 - MALIGNANT NEOPLASM OF BLADDER, UNSPECIFIED Qualifiers: Bladder location: unspecified site Qualified Code(s): C67.9 - Malignant neoplasm of bladder, unspecified (6) Acute hypoxemic respiratory failure Code(s): J96.01 - ACUTE RESPIRATORY FAILURE WITH HYPOXIA
--- NOTE | 2016-09-21 09:57 | PN ---
[id number] is a 76 year old female with a history of COPD and bladder ca (in remission). patient was admitted from the emergency department for COPD exacerbation. Vital Signs Period Temp Pulse Resp BP Sys/Almeida Pulse Ox Last 24 Hr 97.6 F-99.3 F 86-95 16-20 113-125/62-74 98-100 PHYSICAL EXAMINATION GENERAL: The patient is awake, alert, and fully oriented, anxious. HEAD: Normal with no signs of trauma. EYES: PERRL, extraocular movements intact, sclera anicteric, conjunctiva clear. No ptosis. ENT: Ears normal, nares patent, oropharynx clear without exudates, moist mucous membranes. NECK: Trachea midline, full range of motion, supple. LUNGS: Breath sounds equal, clear to apexes and diminished to bases, no wheezes , no rales, no crackles, no accessory muscle use. HEART: Regular rate and rhythm, S1, S2 without murmur, rub or gallop. ABDOMEN: Soft, nontender, nondistended, normoactive bowel sounds, no guarding, no rebound, no hepatosplenomegaly, no masses. EXTREMITIES: 2+ pulses, warm, well-perfused, no edema. NEUROLOGICAL: Cranial nerves II through XII grossly intact. Normal speech, gait not observed. PSYCH: Normal mood, normal affect. SKIN: Warm, dry, normal turgor, no rashes or lesions noted Laboratory Results - last 24 hr 09/20/16 09/21/16 09/21/16 08:00 07:00 07:00 WBC 6.2 RBC 3.62 Hgb 10.8 Hct 31.9 L MCV 88.3 MCHC 33.9 RDW 13.6 Plt Count 179 MPV 8.5 Neutrophils % 93.3 H Lymphocytes % 3.8 L D Monocytes % 2.7 L Eosinophils % 0.0 Basophils % 0.2 Sodium 138 136 Potassium 4.1 4.3 Chloride 106 103 Carbon Dioxide 23 D 26 Anion Gap 9 7 L BUN 13 16 D Creatinine 0.6 D 0.6 Creat Clearance w eGFR > 60 > 60 Random Glucose 214 H D 213 H Calcium 8.2 L 8.4 Phosphorus 2.4 L Magnesium 2.4 2.3 Total Bilirubin 0.3 D 0.5 D AST 25 21 ALT 19 18 Alkaline Phosphatase 64 56 Total Protein 6.1 L 6.0 L Albumin 3.7 3.7 Active Medications Generic Name Dose Route Start Last Admin Trade Name Freq PRN Reason Stop Dose Admin Acetaminophen 650 mg 09/19/16 08:44 Tylenol - PO Q6H PRN FEVER OR PAIN Albuterol Sulfate 1 amp 09/20/16 15:22 09/20/16 18:00 Ventolin 0.083% Nebulizer Soln - NEB 1 amp Q4H PRN Administration SHORT OF BREATH/WHEEZING Alprazolam 0.25 mg 09/20/16 10:13 09/20/16 18:00 Xanax - PO 0.25 mg Q8H PRN Administration ANXIETY Amlodipine Besylate 5 mg 09/19/16 10:00 09/20/16 10:00 Norvasc - PO 5 mg DAILY [facility] Administration Arformoterol Tartrate 1 amp 09/20/16 10:00 09/20/16 23:05 Brovana (Restricted To Pulmonology/Resp) - NEB 1 amp BID [facility] Administration Aspirin 81 mg 09/19/16 12:30 09/20/16 10:00 Asa - PO 81 mg DAILY [facility] Administration Atorvastatin Calcium 10 mg 09/19/16 22:00 09/20/16 23:06 Lipitor - PO 10 mg HS [facility] Administration Docusate Sodium 100 mg 09/19/16 14:00 09/20/16 23:07 Colace - PO 100 mg TID [facility] Administration Enoxaparin Sodium 40 mg 09/21/16 10:00 Lovenox - SQ DAILY [facility] Escitalopram Oxalate 10 mg 09/19/16 12:30 09/20/16 10:00 Lexapro - PO 10 mg DAILY [facility] Administration Levofloxacin 150 mls @ 100 mls/hr 09/20/16 10:00 09/20/16 10:00 Levaquin 750 Mg Premixed Ivpb - IVPB 100 mls/hr DAILY [facility] Administration Methylprednisolone Sodium Succinate 40 mg 09/20/16 09:00 09/20/16 23:07 Solu-Medrol - IVPB 40 mg Q6H-IV [facility] Administration Montelukast Sodium 10 mg 09/19/16 22:00 09/20/16 23:06 Singulair - PO 10 mg HS [facility] Administration Ondansetron HCl 4 mg 09/19/16 08:44 Zofran Injection IVPB Q6H PRN NAUSEA Pantoprazole Sodium 40 mg 09/19/16 12:45 09/20/16 10:00 Protonix - PO 40 mg DAILY [facility] Administration Potassium Phos/Sodium Phos 1 packet 09/21/16 09:43 Phos-Nak Packet - PO 09/21/16 09:44 ONCE ONE Tiotropium [place] 1 puff 09/20/16 14:30 Spiriva - IH DAILY [facility] Microbiology 09/19/16 16:00 Urine - Urine Clean Catch Urine Culture - Final 09/19/16 07:11 Blood - Peripheral Venous Blood Culture - Preliminary NO GROWTH OBTAINED AFTER 48 HOURS, INCUBATION TO CONTINUE FOR 3 DAYS. 09/19/16 07:11 Blood - Peripheral Venous Blood Culture - Preliminary NO GROWTH OBTAINED AFTER 48 HOURS, INCUBATION TO CONTINUE FOR 3 DAYS. 09/19/16 16:00 Urine For Antigen Detection Legionella Antigen - Final, negative 09/19/16 16:00 Urine For Antigen Detection Streptococcus pneumoniae Antigen (M - Final, negative 09/19/16 09:45 Nasopharyngeal Swab Respiratory Virus Panel - Preliminary 09/19/16 09:45 Nasopharyngeal Swab Influenza Types A,B Antigen (NAJMA) - Final , negative 09/19/16 09:45 Nasopharyngeal Swab - Final ASSESSMENT/PLAN: IMAGING chest x-ray (09/20/2016) no effusions no infiltrates noted Bilateral lower extremity duplex no DVT noted. ASSESSMENT/PLAN: 1 pulmonary: COPD exacerbation - continue solumedrol q6h wean down as appropriate - continue brovana, tudorza and spiriva with albuteorol prn - continue prn bipap - pulmonary consulted and following PNA - Treating for suspected bronchitis continue Levaquin - low grade temp noted last evening. - pending sputum culture 2) psych anxiety - xanax 0.25mg tid prn f/e/n - full liquid diet - Replete electrolytes when necessary PPX - scd - pt - lovenox - protonix - oob - pt dispo: requires inpatient care Visit type - Emergency Visit Emergency Visit: Yes ED Registration Date: 09/19/16 Care time: The patient presented to the Emergency Department on the above date and was hospitalized for further evaluation of their emergent condition. - New Patient This patient is new to me today: No - Critical Care Critical Care patient: No - Discharge Referral Referred to [facility] Med P.C.: No
[2016-09-21] MEDS: PANTOPRAZOLE 40 MG TABLET (FP) PO SCH (10:00)
[2016-09-21] MEDS: ESCITALOPRAM OXALATE 10 MG TABLET (FP) PO SCH (10:00)
[2016-09-21] MEDS: TIOTROPIUM BROMIDE 18 MCG/INH (DEVICE W/ 5 CAPSULES) IH SCH (10:00)
[2016-09-21] MEDS: LEVOFLOXACIN 750 MG IVPB 150 ML IVPB SCH (10:00)
[2016-09-21] MEDS: ASPIRIN 81 MG CHEWABLE TABLETS PO SCH (10:00)
[2016-09-21] MEDS: amLODIPine BESYLATE 5 MG TABLET (FP) PO SCH (10:00)
[2016-09-21] MEDS: ENOXAPARIN NA (PORCINE) 40 MG/0.4 ML DISP.SYRIN SQ SCH (10:00)
[2016-09-21] MEDS: ARFORMOTEROL TARTRATE 15 MCG/2 ML VIAL NEB SCH ×2 (10:15→21:37)
[2016-09-21] MEDS ORDERED: NAPH,MB-DB/K PH,MBDB POWDER PACKET PO ONE (10:30)
[2016-09-21] MEDS: ALBUTEROL SO4 0.083% IH SOL 2.5 MG/3 ML VIAL.NEB. NEB PRN (18:06)
[2016-09-21] MEDS: ATORVASTATIN CA 10 MG TABLET (FP) PO SCH (21:37)
[2016-09-21] MEDS: ALPRAZolam 0.25 MG TABLET PO PRN (21:37)
[2016-09-21] MEDS: MONTELUKAST NA 10 MG TABLET PO SCH (21:37)
[2016-09-22] MEDS: methylPREDNISolone NA SUCC 40 MG/1 ML VIAL IVPB SCH ×3 (03:47→18:04)
--- NOTE | 2016-09-22 08:00 | PN ---
[id number] patient is a 76 year old female with a history of COPD and bladder ca (in remission). patient was admitted from the emergency department for COPD exacerbation. Vital Signs Period Temp Pulse Resp BP Sys/Almeida Pulse Ox Last 24 Hr 97.7 F-98.9 F 74-88 16-22 130-146/59-78 98-99 GENERAL: The patient is awake, alert, and fully oriented, in no acute distress. HEAD: Normal with no signs of trauma. EYES: PERRL, extraocular movements intact, sclera anicteric, conjunctiva clear. No ptosis. ENT: Ears normal, nares patent, oropharynx clear without exudates, moist mucous membranes. NECK: Trachea midline, full range of motion, supple. LUNGS: Breath sounds equal, clear to auscultation bilaterally, diminished to bases, much improved no wheezes, no crackles, no accessory muscle use. HEART: Regular rate and rhythm, S1, S2 without murmur, rub or gallop. ABDOMEN: Soft, nontender, nondistended, normoactive bowel sounds, no guarding, no rebound, no hepatosplenomegaly, no masses. EXTREMITIES: 2+ pulses, warm, well-perfused, no edema. NEUROLOGICAL: Cranial nerves II through XII grossly intact. Normal speech, gait not observed. PSYCH: Normal mood, normal affect. SKIN: Warm, dry, normal turgor, no rashes or lesions noted Laboratory Results - last 24 hr 09/21/16 09/21/16 07:00 07:00 WBC 6.2 RBC 3.62 Hgb 10.8 Hct 31.9 L MCV 88.3 MCHC 33.9 RDW 13.6 Plt Count 179 MPV 8.5 Neutrophils % 93.3 H Lymphocytes % 3.8 L D Monocytes % 2.7 L Eosinophils % 0.0 Basophils % 0.2 Sodium 136 Potassium 4.3 Chloride 103 Carbon Dioxide 26 Anion Gap 7 L BUN 16 D Creatinine 0.6 Creat Clearance w eGFR > 60 Random Glucose 213 H Calcium 8.4 Phosphorus 2.4 L Magnesium 2.3 Total Bilirubin 0.5 D AST 21 ALT 18 Alkaline Phosphatase 56 Total Protein 6.0 L Albumin 3.7 Active Medications Generic Name Dose Route Start Last Admin Trade Name Freq PRN Reason Stop Dose Admin Acetaminophen 650 mg 09/19/16 08:44 Tylenol - PO Q6H PRN FEVER OR PAIN Albuterol Sulfate 1 amp 09/20/16 15:22 09/21/16 18:06 Ventolin 0.083% Nebulizer Soln - NEB 1 amp Q4H PRN Administration SHORT OF BREATH/WHEEZING Alprazolam 0.25 mg 09/20/16 10:13 09/21/16 21:37 Xanax - PO 0.25 mg Q8H PRN Administration ANXIETY Amlodipine Besylate 5 mg 09/19/16 10:00 09/21/16 10:00 Norvasc - PO 5 mg DAILY [facility] Administration Arformoterol Tartrate 1 amp 09/20/16 10:00 09/21/16 21:37 Brovana (Restricted To Pulmonology/Resp) - NEB 1 amp BID [facility] Administration Aspirin 81 mg 09/19/16 12:30 09/21/16 10:00 Asa - PO 81 mg DAILY [facility] Administration Atorvastatin Calcium 10 mg 09/19/16 22:00 09/21/16 21:37 Lipitor - PO 10 mg HS [facility] Administration Docusate Sodium 100 mg 09/19/16 14:00 09/21/16 21:37 Colace - PO 100 mg TID [facility] Administration Enoxaparin Sodium 40 mg 09/21/16 10:00 09/21/16 10:00 Lovenox - SQ 40 mg DAILY [facility] Administration Escitalopram Oxalate 10 mg 09/19/16 12:30 09/21/16 10:00 Lexapro - PO 10 mg DAILY [facility] Administration Levofloxacin 150 mls @ 100 mls/hr 09/20/16 10:00 09/21/16 10:00 Levaquin 750 Mg Premixed Ivpb - IVPB 100 mls/hr DAILY [facility] Administration Methylprednisolone Sodium Succinate 40 mg 09/20/16 09:00 09/22/16 03:47 Solu-Medrol - IVPB 40 mg Q6H-IV [facility] Administration Montelukast Sodium 10 mg 09/19/16 22:00 09/21/16 21:37 Singulair - PO 10 mg HS [facility] Administration Ondansetron HCl 4 mg 09/19/16 08:44 Zofran Injection IVPB Q6H PRN NAUSEA Pantoprazole Sodium 40 mg 09/19/16 12:45 09/21/16 10:00 Protonix - PO 40 mg DAILY [facility] Administration Tiotropium [place] 1 puff 09/20/16 14:30 09/21/16 10:00 Spiriva - IH 1 inh DAILY [facility] Administration Microbiology 09/19/16 16:00 Urine - Urine Clean Catch Urine Culture - Final 09/19/16 07:11 Blood - Peripheral Venous Blood Culture - Preliminary NO GROWTH OBTAINED AFTER 48 HOURS, INCUBATION TO CONTINUE FOR 3 DAYS. 09/19/16 07:11 Blood - Peripheral Venous Blood Culture - Preliminary NO GROWTH OBTAINED AFTER 48 HOURS, INCUBATION TO CONTINUE FOR 3 DAYS. 09/19/16 16:00 Urine For Antigen Detection Legionella Antigen - Final, negative 09/19/16 16:00 Urine For Antigen Detection Streptococcus pneumoniae Antigen (M - Final, negative 09/19/16 09:45 Nasopharyngeal Swab Respiratory Virus Panel - Preliminary 09/19/16 09:45 Nasopharyngeal Swab Influenza Types A,B Antigen (NAJMA) - Final , negative 09/19/16 09:45 Nasopharyngeal Swab - Final IMAGING chest x-ray (09/20/2016) no effusions no infiltrates noted Bilateral lower extremity duplex no DVT noted. ASSESSMENT/PLAN: 1 pulmonary: COPD exacerbation - decrease solumedrol TID - continue brovana, tudorza and spiriva with albuteorol prn - keep spo2 above 92%, 2LNC - pulmonary consulted and following PNA - Treating for suspected bronchitis continue Levaquin - pending sputum culture 2) psych anxiety - xanax 0.25mg tid prn 3) neuro short term memory loss - pt and daughter reports short term memory loss for the past 7 months, requesting neurology consult f/e/n - soft diet - Replete electrolytes when necessary PPX - scd - pt - lovenox - protonix - oob - pt dispo: requires inpatient care Visit type - Emergency Visit Emergency Visit: Yes ED Registration Date: 09/19/16 Care time: The patient presented to the Emergency Department on the above date and was hospitalized for further evaluation of their emergent condition. - New Patient This patient is new to me today: No - Critical Care Critical Care patient: No - Discharge Referral Referred to [facility] Med P.C.: No
[2016-09-22 08:46] LABS: MCH 29.4 pg (25.7-33.7); MCHC 32.8 g/dl (32.0-36.0); MEAN CELL VOLUME 89.6 fl (80-96); MEAN PLT VOLUME 8.4 fl (7.5-11.1); NEUTROPHILS 90.8 % (42.8-82.8); PLATELET COUNT 174 K/MM3 (134-434); RDW 13.4 % (11.6-15.6); WHITE BLOOD COUNT 5.1 K/mm3 (4.0-10.0)
[2016-09-22 08:58] LABS: ALBUMIN 3.7 g/dl (3.5-5.0); ALK PHOS 53 U/L (32-92); ANION GAP 6 (8-16); BILIRUBIN,TOTAL 0.6 mg/dl (0.2-1.0); CALCIUM 8.7 mg/dl (8.4-10.2); CO2 30 mmol/L (22-28); CREATININE 0.6 mg/dl (0.6-1.3); GLUCOSE,RANDOM 296 mg/dl (74-106); MAGNESIUM 2.6 mg/dL (1.8-2.4); PHOSPHOROUS 2.7 mg/dl (2.5-4.6); SGOT/AST 21 U/L (10-42); SGPT/ALT 19 U/L (10-40); TOT PROT 5.9 g/dl (6.4-8.3)
[2016-09-22] MEDS: ARFORMOTEROL TARTRATE 15 MCG/2 ML VIAL NEB SCH ×2 (10:07→21:26)
--- NOTE | 2016-09-22 10:22 | PN ---
Progress Note, Physician History of Present Illness: PULMONARY ALERT OOB-CHAIR,FEELING BETTER,LESS DYSPNEIC - Current Medication List Current Medications: Active Medications Acetaminophen (Tylenol -) 650 mg PO Q6H PRN PRN Reason: FEVER OR PAIN Albuterol Sulfate (Ventolin 0.083% Nebulizer Soln -) 1 amp NEB Q4H PRN PRN Reason: SHORT OF BREATH/WHEEZING Last Admin: 09/21/16 18:06 Dose: 1 amp Alprazolam (Xanax -) 0.25 mg PO Q8H PRN PRN Reason: ANXIETY Last Admin: 09/21/16 21:37 Dose: 0.25 mg Amlodipine Besylate (Norvasc -) 5 mg PO DAILY [facility] Last Admin: 09/21/16 10:00 Dose: 5 mg Arformoterol Tartrate (Brovana (Restricted To Pulmonology/Resp) -) 1 amp NEB BID [facility] Last Admin: 09/22/16 10:07 Dose: 1 amp Aspirin (Asa -) 81 mg PO DAILY [facility] Last Admin: 09/21/16 10:00 Dose: 81 mg Atorvastatin Calcium (Lipitor -) 10 mg PO HS [facility] Last Admin: 09/21/16 21:37 Dose: 10 mg Docusate Sodium (Colace -) 100 mg PO TID [facility] Last Admin: 09/21/16 21:37 Dose: 100 mg Enoxaparin Sodium (Lovenox -) 40 mg SQ DAILY [facility] Last Admin: 09/21/16 10:00 Dose: 40 mg Escitalopram Oxalate (Lexapro -) 10 mg PO DAILY [facility] Last Admin: 09/21/16 10:00 Dose: 10 mg Levofloxacin (Levaquin 750 Mg Premixed Ivpb -) 150 mls @ 100 mls/hr IVPB DAILY [facility] Last Admin: 09/21/16 10:00 Dose: 100 mls/hr Methylprednisolone Sodium Succinate (Solu-Medrol -) 40 mg IVPB Q6H-IV [facility] Last Admin: 09/22/16 03:47 Dose: 40 mg Montelukast Sodium (Singulair -) 10 mg PO HS [facility] Last Admin: 09/21/16 21:37 Dose: 10 mg Ondansetron HCl (Zofran Injection) 4 mg IVPB Q6H PRN PRN Reason: NAUSEA Pantoprazole Sodium (Protonix -) 40 mg PO DAILY [facility] Last Admin: 09/21/16 10:00 Dose: 40 mg Tiotropium [place] (Spiriva -) 1 puff IH DAILY [facility] Last Admin: 09/21/16 10:00 Dose: 1 inh - Objective Vital Signs: Vital Signs Temperature 98.4 F 09/22/16 09:32 Pulse Rate 78 09/22/16 10:08 Respiratory Rate 18 09/22/16 09:32 Blood Pressure 129/43 09/22/16 09:32 O2 Sat by Pulse Oximetry (%) 98 09/22/16 10:08 Constitutional: Yes: Well Nourished, Calm Eyes: Yes: WNL HENT: Yes: WNL Neck: Yes: WNL Cardiovascular: Yes: Regular Rate and Rhythm, S1, S2 Respiratory: Yes: Diminished Gastrointestinal: Yes: WNL Extremities: Yes: WNL Edema: No Labs: CBC, BMP 09/22/16 07:00 09/22/16 07:00 Problem List - Problems (1) COPD with acute exacerbation Code(s): J44.1 - CHRONIC OBSTRUCTIVE PULMONARY DISEASE W (ACUTE) EXACERBATION (2) DVT prophylaxis Code(s): [id number] - (3) Elevated lactic acid level Code(s): R79.89 - OTHER SPECIFIED ABNORMAL FINDINGS OF BLOOD CHEMISTRY (4) Anxiety Code(s): F41.9 - ANXIETY DISORDER, UNSPECIFIED (5) Bladder cancer Code(s): C67.9 - MALIGNANT NEOPLASM OF BLADDER, UNSPECIFIED Qualifiers: Bladder location: unspecified site Qualified Code(s): C67.9 - Malignant neoplasm of bladder, unspecified (6) Acute hypoxemic respiratory failure Code(s): J96.01 - ACUTE RESPIRATORY FAILURE WITH HYPOXIA Assessment/Plan IMP ACUTE ON CHRONIC HYPOXEMIC RESPIRATORY FAILURE CLINICALLY IMPROVING ADVANCED COPD URI H/O BLADDER CA ELEVATED LACTATE normal ANXIETY PLAN IV STEROIDS SAME DOSE INHALED BRONCHODILATORS ANTIBIOTICS O2 BIPAP PRN XANAX PRN DR SAAB Problem List - Problems (1) COPD with acute exacerbation Code(s): J44.1 - CHRONIC OBSTRUCTIVE PULMONARY DISEASE W (ACUTE) EXACERBATION (2) DVT prophylaxis Code(s): [id number] - (3) Elevated lactic acid level Code(s): R79.89 - OTHER SPECIFIED ABNORMAL FINDINGS OF BLOOD CHEMISTRY (4) Anxiety Code(s): F41.9 - ANXIETY DISORDER, UNSPECIFIED (5) Bladder cancer Code(s): C67.9 - MALIGNANT NEOPLASM OF BLADDER, UNSPECIFIED Qualifiers: Bladder location: unspecified site Qualified Code(s): C67.9 - Malignant neoplasm of bladder, unspecified (6) Acute hypoxemic respiratory failure Code(s): J96.01 - ACUTE RESPIRATORY FAILURE WITH HYPOXIA
[2016-09-22] MEDS ORDERED: PT OWN MED DRAWER 7, Y5N ONE (10:38)
[2016-09-22] MEDS: amLODIPine BESYLATE 5 MG TABLET (FP) PO SCH ×2 (10:41→10:47)
[2016-09-22] MEDS: PANTOPRAZOLE 40 MG TABLET (FP) PO SCH (10:42)
[2016-09-22] MEDS: ASPIRIN 81 MG CHEWABLE TABLETS PO SCH (10:42)
[2016-09-22] MEDS: ESCITALOPRAM OXALATE 10 MG TABLET (FP) PO SCH (10:42)
[2016-09-22] MEDS: ENOXAPARIN NA (PORCINE) 40 MG/0.4 ML DISP.SYRIN SQ SCH (10:42)
[2016-09-22] MEDS: LEVOFLOXACIN 750 MG IVPB 150 ML IVPB SCH (10:43)
[2016-09-22] MEDS: TIOTROPIUM BROMIDE 18 MCG/INH (DEVICE W/ 5 CAPSULES) IH SCH (10:43)
--- NOTE | 2016-09-22 15:23 | CONSULT ---
Consult - text type - Consultation Consultation Note: Neurology History of Present Illness 76 y/o female with increase SOB. Was seen by her PMD and placed on a Z-pack. Pt with cough. Denies fever or chills. Neurology consult for memory. She reports forgetting things and what was most concerning was recently having difficulty with medications. She has not been on any memory medications. I would like to check a CT head and believe she would benefit from Aricept 5mg. The patient was in agreement with this. Past History - Past Medical History Allergies/Adverse Reactions: Allergies Allergy/AdvReac Type Severity Reaction Status Date / Time Penicillins Allergy Verified 04/17/16 06:23 strawberry Allergy Verified 04/19/16 15:59 Penicillins Allergy Uncoded 09/14/11 09:30 Home Medications: Ambulatory Orders Aspirin [ASA -] 81 mg PO DAILY 03/02/16 Albuterol 2.5/Ipratropium 0.5 [Duoneb -] 1 amp NEB QIDR #10 amp 04/22/16 Amlodipine Besylate [Norvasc -] 5 mg PO DAILY #60 tablet 04/22/16 Montelukast Na [Singulair -] 10 mg PO HS #60 tablet 04/22/16 Escitalopram Oxalate 10 mg PO DAILY #0 tablet 09/17/16 Pantoprazole Sodium 40 mg PO DAILY 09/17/16 Anemia: No Asthma: No Cancer: Yes (BLADDER CANCER) Cardiac Disorders: Yes CVA: No COPD: Yes (HOME O2 AT NIGHT,) CHF: No Dementia: No Diabetes: No GI Disorders: No Disorders: Yes (BLADDER CANCER treated with chemo wash) HTN: No Hypercholesterolemia: Yes Liver Disease: No Psychiatric Problems: Yes (anxiety) Seizures: No Thyroid Disease: No - Surgical History Abdominal Surgery: No Appendectomy: Yes ( CHILD) Cardiac Surgery: No Cholecystectomy: No Lung Surgery: No Neurologic Surgery: No Orthopedic Surgery: Yes (LEFT FOOT SURGERY, r hip surgery) - Family Disease History Family Disease History: Heart Disease: Mother - Reproductive History Dysfunctional Uterine Bleeding: No - Immunization History Immunization Up to Date: Yes - Psycho/Social/Smoking Cessation Hx Anxiety: Yes Suicidal Ideation: No Smoking Status: No Smoking History: Former smoker Years of Tobacco Use: 20 Have you smoked in the past 12 months: Yes Number of Cigarettes Smoked Daily: 1 If you are a former smoker, when did you quit?: 2015 Cigars Per Day: 0 'Breaking Loose' booklet given: 04/17/16 Hx Alcohol Use: No Drug/Substance Use Hx: No Substance Use Type: None Hx Substance Use Treatment: No Review of Systems - Review of Systems Able to Perform ROS?: Yes Is the patient limited [place] proficient: No Constitutional: No: Chills, Fever, Malaise HEENTM: No: Nose Congestion Respiratory: Yes: Cough, Shortness of Breath, Wheezing. No: Productive cough Cardiac (ROS): No: Chest Pain, Edema, Palpitations, Chest Tightness ABD/GI: No: Diarrhea, Nausea, Vomiting : No: Burning, Dysuria Musculoskeletal: No: Back Pain Neurological: No: Headache, Numbness, Paresthesia All Other Systems: Reviewed and Negative *Physical Exam - Physical Exam General Appearance: Yes: Nourished, Appropriately Dressed, Apparent Distress, Moderate Distress. No: Mild Distress HEENT: positive: EOMI, JR, Normal ENT Inspection, Pharynx Normal. negative: Nasal Congestion, Rhinorrhea, Sinus Tenderness Neck: positive: Trachea midline, Normal Thyroid, Supple. negative: Rigid Respiratory/Chest: positive: Respiratory Distress, Wheezing. negative: Lungs Clear (expiratory wheezing mild, decrease BS b/l on the left), Normal Breath Sounds, Accessory Muscle Use Cardiovascular: positive: Regular Rhythm, S1, S2, Tachycardia. negative: Regular Rate Gastrointestinal/Abdominal: positive: Normal Bowel Sounds, Flat, Soft. negative : Tender, Organomegaly, Pulsatile Mass Lymphatic: negative: Adenopathy, Tenderness, Other Musculoskeletal: positive: Normal Inspection. negative: CVA Tenderness Extremity: positive: Normal Capillary Refill, Normal Inspection, Normal Range of Motion Integumentary: positive: Normal Color, Warm Neurologic: positive: kiln loader II-XII NML intact, Fully Oriented, Alert, Normal Mood/ Affect (strength 5+/5 b/l in UE and LE, no focal deficits noted), Normal Response, Motor Strength 5/5 Plan: 76 y/o female with increase SOB. Was seen by her PMD and placed on a Z-pack. Pt with cough. Denies fever or chills. Neurology consult for memory. She reports forgetting things and what was most concerning was recently having difficulty with medications. She has not been on any memory medications. I would like to check a CT head and believe she would benefit from Aricept 5mg at bedtime. The patient was in agreement with this. Will start tonight. Further mgmt outpatient.
[2016-09-22] MEDS: DOCUSATE SODIUM 100 MG CAPSULE (FP) PO SCH ×3 (16:02→21:26)
[2016-09-22] MEDS: DONEPEZIL HCL 5 MG TABLET (FP) PO SCH (16:02)
[2016-09-22] MEDS ORDERED: REFRIGERATED ANITBIOTICS ONE (19:40)
[2016-09-22] MEDS: ATORVASTATIN CA 10 MG TABLET (FP) PO SCH (21:26)
[2016-09-22] MEDS: MONTELUKAST NA 10 MG TABLET PO SCH (21:26)
[2016-09-23] MEDS: methylPREDNISolone NA SUCC 40 MG/1 ML VIAL IVPB SCH ×2 (01:25→09:33)
[2016-09-23] MEDS: ALPRAZolam 0.25 MG TABLET PO PRN ×2 (01:29→23:14)
[2016-09-23] MEDS: DOCUSATE SODIUM 100 MG CAPSULE (FP) PO SCH ×3 (07:03→21:25)
--- NOTE | 2016-09-23 07:50 | PN ---
Progress Note, Physician History of Present Illness: PULMONARY ALERT,FEELING BETTER,LESS DYSPNEIC,OOB-CHAIR - Current Medication List Current Medications: Active Medications Acetaminophen (Tylenol -) 650 mg PO Q6H PRN PRN Reason: FEVER OR PAIN Albuterol Sulfate (Ventolin 0.083% Nebulizer Soln -) 1 amp NEB Q4H PRN PRN Reason: SHORT OF BREATH/WHEEZING Last Admin: 09/21/16 18:06 Dose: 1 amp Alprazolam (Xanax -) 0.25 mg PO Q8H PRN PRN Reason: ANXIETY Last Admin: 09/23/16 01:29 Dose: 0.25 mg Amlodipine Besylate (Norvasc -) 5 mg PO DAILY [facility] Last Admin: 09/22/16 10:47 Dose: 5 mg Arformoterol Tartrate (Brovana (Restricted To Pulmonology/Resp) -) 1 amp NEB BID [facility] Last Admin: 09/22/16 21:26 Dose: 1 amp Aspirin (Asa -) 81 mg PO DAILY [facility] Last Admin: 09/22/16 10:42 Dose: 81 mg Atorvastatin Calcium (Lipitor -) 10 mg PO HS [facility] Last Admin: 09/22/16 21:26 Dose: 10 mg Docusate Sodium (Colace -) 100 mg PO TID [facility] Last Admin: 09/23/16 07:03 Dose: 100 mg Donepezil HCl (Aricept -) 5 mg PO DAILY [facility] Last Admin: 09/22/16 16:02 Dose: 5 mg Enoxaparin Sodium (Lovenox -) 40 mg SQ DAILY [facility] Last Admin: 09/22/16 10:42 Dose: 40 mg Escitalopram Oxalate (Lexapro -) 10 mg PO DAILY [facility] Last Admin: 09/22/16 10:42 Dose: 10 mg Levofloxacin (Levaquin 750 Mg Premixed Ivpb -) 150 mls @ 100 mls/hr IVPB DAILY [facility] Last Admin: 09/22/16 10:43 Dose: 100 mls/hr Methylprednisolone Sodium Succinate (Solu-Medrol -) 40 mg IVPB Q8H-IV [facility] Last Admin: 09/23/16 01:25 Dose: 40 mg Montelukast Sodium (Singulair -) 10 mg PO HS [facility] Last Admin: 09/22/16 21:26 Dose: 10 mg Ondansetron HCl (Zofran Injection) 4 mg IVPB Q6H PRN PRN Reason: NAUSEA Pantoprazole Sodium (Protonix -) 40 mg PO DAILY [facility] Last Admin: 09/22/16 10:42 Dose: 40 mg Tiotropium [place] (Spiriva -) 1 puff IH DAILY [facility] Last Admin: 09/22/16 10:43 Dose: 1 inh - Objective Vital Signs: Vital Signs Temperature 98.6 F 09/23/16 06:00 Pulse Rate 77 09/23/16 06:00 Respiratory Rate 21 09/23/16 06:00 Blood Pressure 134/73 09/23/16 06:00 O2 Sat by Pulse Oximetry (%) 100 09/22/16 22:10 Constitutional: Yes: Well Nourished, Calm Eyes: Yes: WNL HENT: Yes: WNL, Tonsillar Exudate Cardiovascular: Yes: Regular Rate and Rhythm, S1, S2 Respiratory: Yes: Diminished Gastrointestinal: Yes: WNL Extremities: Yes: WNL Edema: No Labs: CBC, BMP Problem List - Problems (1) COPD with acute exacerbation Code(s): J44.1 - CHRONIC OBSTRUCTIVE PULMONARY DISEASE W (ACUTE) EXACERBATION (2) DVT prophylaxis Code(s): [id number] - (3) Elevated lactic acid level Code(s): R79.89 - OTHER SPECIFIED ABNORMAL FINDINGS OF BLOOD CHEMISTRY (4) Anxiety Code(s): F41.9 - ANXIETY DISORDER, UNSPECIFIED (5) Bladder cancer Code(s): C67.9 - MALIGNANT NEOPLASM OF BLADDER, UNSPECIFIED Qualifiers: Bladder location: unspecified site Qualified Code(s): C67.9 - Malignant neoplasm of bladder, unspecified (6) Acute hypoxemic respiratory failure Code(s): J96.01 - ACUTE RESPIRATORY FAILURE WITH HYPOXIA Assessment/Plan IMP ACUTE ON CHRONIC HYPOXEMIC RESPIRATORY FAILURE CLINICALLY IMPROVING ADVANCED COPD URI H/O BLADDER CA ELEVATED LACTATE normal ANXIETY PLAN STEROIDS TAPER INHALED BRONCHODILATORS ANTIBIOTICS O2 BIPAP PRN XANAX PRN DR SAAB Problem List - Problems (1) COPD with acute exacerbation Code(s): J44.1 - CHRONIC OBSTRUCTIVE PULMONARY DISEASE W (ACUTE) EXACERBATION (2) DVT prophylaxis Code(s): [id number] - (3) Elevated lactic acid level Code(s): R79.89 - OTHER SPECIFIED ABNORMAL FINDINGS OF BLOOD CHEMISTRY (4) Anxiety Code(s): F41.9 - ANXIETY DISORDER, UNSPECIFIED (5) Bladder cancer Code(s): C67.9 - MALIGNANT NEOPLASM OF BLADDER, UNSPECIFIED Qualifiers: Bladder location: unspecified site Qualified Code(s): C67.9 - Malignant neoplasm of bladder, unspecified (6) Acute hypoxemic respiratory failure Code(s): J96.01 - ACUTE RESPIRATORY FAILURE WITH HYPOXIA
[2016-09-23 08:23] LABS: BASOPHIL 0.3 % (0-2.0); EOSINOPHIL 0.1 % (0-4.5); MCH 30.4 pg (25.7-33.7); MCHC 34.6 g/dl (32.0-36.0); MEAN CELL VOLUME 87.7 fl (80-96); MEAN PLT VOLUME 8.3 fl (7.5-11.1); NEUTROPHILS 90.3 % (42.8-82.8); PLATELET COUNT 191 K/MM3 (134-434); RDW 13.4 % (11.6-15.6); WHITE BLOOD COUNT 7.6 K/mm3 (4.0-10.0)
[2016-09-23 08:48] LABS: ANION GAP 9 (8-16); CALCIUM 8.8 mg/dl (8.4-10.2); CO2 30 mmol/L (22-28); CREATININE 0.6 mg/dl (0.6-1.3); GLUCOSE,RANDOM 224 mg/dl (74-106); MAGNESIUM 2.4 mg/dL (1.8-2.4); PHOSPHOROUS 2.9 mg/dl (2.5-4.6)
[2016-09-23 08:57] LABS: COCKROFT - GAULT NT
[2016-09-23] MEDS ORDERED: PT OWN MED DRAWER 7, Y5N ONE (09:10)
[2016-09-23] MEDS: PANTOPRAZOLE 40 MG TABLET (FP) PO SCH (09:32)
[2016-09-23] MEDS: ESCITALOPRAM OXALATE 10 MG TABLET (FP) PO SCH (09:32)
[2016-09-23] MEDS: amLODIPine BESYLATE 5 MG TABLET (FP) PO SCH (09:32)
[2016-09-23] MEDS: ASPIRIN 81 MG CHEWABLE TABLETS PO SCH (09:32)
[2016-09-23] MEDS: DONEPEZIL HCL 5 MG TABLET (FP) PO SCH (09:32)
[2016-09-23] MEDS: TIOTROPIUM BROMIDE 18 MCG/INH (DEVICE W/ 5 CAPSULES) IH SCH (09:33)
[2016-09-23] MEDS: LEVOFLOXACIN 750 MG IVPB 150 ML IVPB SCH (09:33)
[2016-09-23] MEDS: ENOXAPARIN NA (PORCINE) 40 MG/0.4 ML DISP.SYRIN SQ SCH (09:33)
--- NOTE | 2016-09-23 10:11 | PN ---
Physical Exam: SUBJECTIVE: Patient seen and examined. States she feels well. Able to eat breakfast without difficulty. States her breathing is improved. She states she uses her oxygen @ 2 liters at night and as needed OBJECTIVE: Dyspnea with minimal exertion, on 2 liters of nasal cannula. Vital Signs Period Temp Pulse Resp BP Sys/Almeida Pulse Ox Last 24 Hr 97.7 F-98.6 F 70-89 20-22 127-160/53-73 94-100 GENERAL: The patient is awake, alert, and fully oriented, in no acute distress. HEAD: Normal with no signs of trauma. EYES: PERRL, extraocular movements intact, sclera anicteric, conjunctiva clear. No ptosis. ENT: Ears normal, nares patent, oropharynx clear without exudates, moist mucous membranes. NECK: Trachea midline, full range of motion, supple. LUNGS: Breath sounds diminished posteriorly, dyspnea on exertion HEART: Regular rate and rhythm, S1, S2 without murmur, rub or gallop. ABDOMEN: Soft, nontender, nondistended, normoactive bowel sounds, no guarding, no rebound, no hepatosplenomegaly, no masses. EXTREMITIES: no edema. NEUROLOGICAL: Cranial nerves II through XII grossly intact. Normal speech, gait not observed. PSYCH: Normal mood, normal affect. SKIN: Warm, dry, normal turgor, no rashes or lesions noted Laboratory Results - last 24 hr 09/23/16 09/23/16 07:40 07:40 WBC 7.6 D RBC 4.05 Hgb 12.3 D Hct 35.5 MCV 87.7 MCHC 34.6 RDW 13.4 Plt Count 191 MPV 8.3 Neutrophils % 90.3 H Lymphocytes % 5.9 L Monocytes % 3.4 L Eosinophils % 0.1 D Basophils % 0.3 D Sodium 137 Potassium 4.5 Chloride 98 Carbon Dioxide 30 H Anion Gap 9 BUN 17 Creatinine 0.6 Random Glucose 224 H D Calcium 8.8 Phosphorus 2.9 Magnesium 2.4 Active Medications Generic Name Dose Route Start Last Admin Trade Name Freq PRN Reason Stop Dose Admin Acetaminophen 650 mg 09/19/16 08:44 Tylenol - PO Q6H PRN FEVER OR PAIN Albuterol Sulfate 1 amp 09/20/16 15:22 09/21/16 18:06 Ventolin 0.083% Nebulizer Soln - NEB 1 amp Q4H PRN Administration SHORT OF BREATH/WHEEZING Alprazolam 0.25 mg 09/20/16 10:13 09/23/16 01:29 Xanax - PO 0.25 mg Q8H PRN Administration ANXIETY Amlodipine Besylate 5 mg 09/19/16 10:00 09/23/16 09:32 Norvasc - PO 5 mg DAILY [facility] Administration Arformoterol Tartrate 1 amp 09/20/16 10:00 09/22/16 21:26 Brovana (Restricted To Pulmonology/Resp) - NEB 1 amp BID [facility] Administration Aspirin 81 mg 09/19/16 12:30 09/23/16 09:32 Asa - PO 81 mg DAILY [facility] Administration Atorvastatin Calcium 10 mg 09/19/16 22:00 09/22/16 21:26 Lipitor - PO 10 mg HS [facility] Administration Docusate Sodium 100 mg 09/19/16 14:00 09/23/16 07:03 Colace - PO 100 mg TID [facility] Administration Donepezil HCl 5 mg 09/22/16 15:30 09/23/16 09:32 Aricept - PO 5 mg DAILY [facility] Administration Enoxaparin Sodium 40 mg 09/21/16 10:00 09/23/16 09:33 Lovenox - SQ 40 mg DAILY [facility] Administration Escitalopram Oxalate 10 mg 09/19/16 12:30 09/23/16 09:32 Lexapro - PO 10 mg DAILY [facility] Administration Levofloxacin 150 mls @ 100 mls/hr 09/20/16 10:00 09/23/16 09:33 Levaquin 750 Mg Premixed Ivpb - IVPB 100 mls/hr DAILY [facility] Administration Insulin Aspart 1 vial 09/23/16 11:00 Novolog Vial Sliding Scale - SQ ACHS [facility] Protocol Methylprednisolone Sodium Succinate 40 mg 09/22/16 18:00 09/23/16 09:33 Solu-Medrol - IVPB 40 mg Q8H-IV [facility] Administration Montelukast Sodium 10 mg 09/19/16 22:00 09/22/16 21:26 Singulair - PO 10 mg HS [facility] Administration Ondansetron HCl 4 mg 09/19/16 08:44 Zofran Injection IVPB Q6H PRN NAUSEA Pantoprazole Sodium 40 mg 09/19/16 12:45 09/23/16 09:32 Protonix - PO 40 mg DAILY [facility] Administration Tiotropium [place] 1 puff 09/20/16 14:30 09/23/16 09:33 Spiriva - IH 1 inh DAILY [facility] Administration ASSESSMENT/PLAN: Patient is a 76 year old female with a significant past medical history of COPD and bladder cancer. She presented to the ER on 09/19/2016 for acute COPD exacerbation. Imaging: chest x-ray 09/20/2016: no effusions no infiltrates noted Pulmonary: COPD exacerbation - acute on chronic Assessment/Plan: Pt experiencing shortness of breath on minimal exertion Tolerating 2 liters of nasal cannula/alternating with bipap Solumedrol 40mg Q8 IV On Brovana Scheduled albuterol q4 Pulmonary following Neurology: Short term memory loss Assessment/Plan: Patient states she if forgetful and having difficulty with medications Head CT 09/23/2016: no evidence of acute intracranial hemorrhage, edema or midline shift, mass effect or skull fracture Started on Aricept 5mg by Neuro Monitor Pneumonia Assessment/Plan: On Levaquin 750mg daily started on 09/20 Monitor respiratory status Endocrine: Hyperglycemia - likely secondary to steroids Assessment/Plan: started on Novolog sliding scale monitor BGMs. F.E.N. Fluids: Full Liquid diet Electrolytes: BMP in a.m. Prophylaxis: DVT: Lovenox 40mg GI: colace, protonix Disposition: Continues to requires inpatient care. Likely discharge tomorrow to [facility]. DNR/DNI Visit type - Emergency Visit Emergency Visit: Yes ED Registration Date: 09/19/16 Care time: The patient presented to the Emergency Department on the above date and was hospitalized for further evaluation of their emergent condition. - New Patient This patient is new to me today: Yes Date on this admission: 09/23/16 - Critical Care Critical Care patient: No - Discharge Referral Referred to [facility] Med P.C.: No
[2016-09-23] MEDS: ARFORMOTEROL TARTRATE 15 MCG/2 ML VIAL NEB SCH ×2 (10:49→21:25)
[2016-09-23] MEDS: INSULIN SLIDING SCALE (NOVOLOG) 1 VIAL SQ SCH ×3 (12:22→21:25)
[2016-09-23] MEDS: ATORVASTATIN CA 10 MG TABLET (FP) PO SCH (21:24)
[2016-09-23] MEDS: MONTELUKAST NA 10 MG TABLET PO SCH (21:24)
[2016-09-24] MEDS: methylPREDNISolone NA SUCC 40 MG/1 ML VIAL IVPB SCH ×2 (02:04→10:08)
[2016-09-24] MEDS: DOCUSATE SODIUM 100 MG CAPSULE (FP) PO SCH (06:32)
[2016-09-24] MEDS ORDERED: INSULIN (NOVOLOG) ASPART 100 UNITS/ML 10ML VIAL ONE (06:33)
[2016-09-24] MEDS: INSULIN SLIDING SCALE (NOVOLOG) 1 VIAL SQ SCH ×2 (06:36→10:53)
[2016-09-24 07:02] VITALS: BP 127/59; TEMP 97.6
--- NOTE | 2016-09-24 07:16 | PN ---
Progress Note, Physician History of Present Illness: PULMONARY ALERT,OOB-CHAIR,-SOB,-COUGH - Current Medication List Current Medications: Active Medications Acetaminophen (Tylenol -) 650 mg PO Q6H PRN PRN Reason: FEVER OR PAIN Albuterol Sulfate (Ventolin 0.083% Nebulizer Soln -) 1 amp NEB Q4H PRN PRN Reason: SHORT OF BREATH/WHEEZING Last Admin: 09/21/16 18:06 Dose: 1 amp Alprazolam (Xanax -) 0.25 mg PO Q8H PRN PRN Reason: ANXIETY Last Admin: 09/23/16 23:14 Dose: 0.25 mg Amlodipine Besylate (Norvasc -) 5 mg PO DAILY [facility] Last Admin: 09/23/16 09:32 Dose: 5 mg Arformoterol Tartrate (Brovana (Restricted To Pulmonology/Resp) -) 1 amp NEB BID [facility] Last Admin: 09/23/16 21:25 Dose: 1 amp Aspirin (Asa -) 81 mg PO DAILY [facility] Last Admin: 09/23/16 09:32 Dose: 81 mg Atorvastatin Calcium (Lipitor -) 10 mg PO HS [facility] Last Admin: 09/23/16 21:24 Dose: 10 mg Docusate Sodium (Colace -) 100 mg PO TID [facility] Last Admin: 09/24/16 06:32 Dose: 100 mg Donepezil HCl (Aricept -) 5 mg PO DAILY [facility] Last Admin: 09/23/16 09:32 Dose: 5 mg Enoxaparin Sodium (Lovenox -) 40 mg SQ DAILY [facility] Last Admin: 09/23/16 09:33 Dose: 40 mg Escitalopram Oxalate (Lexapro -) 10 mg PO DAILY [facility] Last Admin: 09/23/16 09:32 Dose: 10 mg Levofloxacin (Levaquin 750 Mg Premixed Ivpb -) 150 mls @ 100 mls/hr IVPB DAILY [facility] Last Admin: 09/23/16 09:33 Dose: 100 mls/hr Insulin Aspart (Novolog Vial Sliding Scale -) 1 vial SQ ACHS [facility]AREN PRN Reason: Protocol Last Admin: 09/24/16 06:36 Dose: 2 units Methylprednisolone Sodium Succinate (Solu-Medrol -) 40 mg IVPB Q8H-IV [facility] Last Admin: 09/24/16 02:04 Dose: 40 mg Montelukast Sodium (Singulair -) 10 mg PO HS [facility] Last Admin: 09/23/16 21:24 Dose: 10 mg Ondansetron HCl (Zofran Injection) 4 mg IVPB Q6H PRN PRN Reason: NAUSEA Pantoprazole Sodium (Protonix -) 40 mg PO DAILY [facility] Last Admin: 09/23/16 09:32 Dose: 40 mg Tiotropium [place] (Spiriva -) 1 puff IH DAILY [facility] Last Admin: 09/23/16 09:33 Dose: 1 inh - Objective Vital Signs: Vital Signs Temperature 97.6 F 09/24/16 06:00 Pulse Rate 62 09/24/16 06:00 Respiratory Rate 18 09/24/16 06:00 Blood Pressure 127/59 09/24/16 06:00 O2 Sat by Pulse Oximetry (%) 96 09/23/16 22:29 Constitutional: Yes: Well Nourished, Calm Eyes: Yes: WNL HENT: Yes: WNL Neck: Yes: WNL Cardiovascular: Yes: Regular Rate and Rhythm, S1, S2 Respiratory: Yes: Diminished Gastrointestinal: Yes: Normal Bowel Sounds, Soft Extremities: Yes: WNL Edema: No Labs: CBC, BMP Problem List - Problems (1) COPD with acute exacerbation Code(s): J44.1 - CHRONIC OBSTRUCTIVE PULMONARY DISEASE W (ACUTE) EXACERBATION (2) DVT prophylaxis Code(s): [id number] - (3) Elevated lactic acid level Code(s): R79.89 - OTHER SPECIFIED ABNORMAL FINDINGS OF BLOOD CHEMISTRY (4) Anxiety Code(s): F41.9 - ANXIETY DISORDER, UNSPECIFIED (5) Bladder cancer Code(s): C67.9 - MALIGNANT NEOPLASM OF BLADDER, UNSPECIFIED Qualifiers: Bladder location: unspecified site Qualified Code(s): C67.9 - Malignant neoplasm of bladder, unspecified (6) Acute hypoxemic respiratory failure Code(s): J96.01 - ACUTE RESPIRATORY FAILURE WITH HYPOXIA Assessment/Plan IMP ACUTE ON CHRONIC HYPOXEMIC RESPIRATORY FAILURE CLINICALLY IMPROVED ADVANCED COPD URI H/O BLADDER CA ELEVATED LACTATE normal ANXIETY PLAN PREDNISONE INHALED BRONCHODILATORS O2 BIPAP PRN XANAX PRN TRANSFER TO [facility] FOR SHORT TERM REHAB DR SAAB Problem List - Problems (1) COPD with acute exacerbation Code(s): J44.1 - CHRONIC OBSTRUCTIVE PULMONARY DISEASE W (ACUTE) EXACERBATION (2) DVT prophylaxis Code(s): [id number] - (3) Elevated lactic acid level Code(s): R79.89 - OTHER SPECIFIED ABNORMAL FINDINGS OF BLOOD CHEMISTRY (4) Anxiety Code(s): F41.9 - ANXIETY DISORDER, UNSPECIFIED (5) Bladder cancer Code(s): C67.9 - MALIGNANT NEOPLASM OF BLADDER, UNSPECIFIED Qualifiers: Bladder location: unspecified site Qualified Code(s): C67.9 - Malignant neoplasm of bladder, unspecified (6) Acute hypoxemic respiratory failure Code(s): J96.01 - ACUTE RESPIRATORY FAILURE WITH HYPOXIA
--- NOTE | 2016-09-24 08:23 | PN ---
Physical Exam: SUBJECTIVE: Patient seen and examined. States she had a good nights rest. Denies any pain or discomfort. Denies any shortness of breath. OBJECTIVE: Conversational dyspnea, on 2 liters of continuous oxygen. Appears comfortable at rest Vital Signs Period Temp Pulse Resp BP Sys/Almeida Pulse Ox Last 24 Hr 97.6 F-98.5 F 62-77 18-20 127-146/51-62 96-98 GENERAL: The patient is awake, alert, and fully oriented, in no acute distress. HEAD: Normal with no signs of trauma. EYES: PERRL, extraocular movements intact, sclera anicteric, conjunctiva clear. No ptosis. ENT: Ears normal, nares patent, oropharynx clear without exudates, moist mucous membranes. NECK: Trachea midline, full range of motion, supple. LUNGS: Breath sounds diminished posteriorly, dyspnea on exertion HEART: Regular rate and rhythm, S1, S2 without murmur, rub or gallop. ABDOMEN: Soft, nontender, nondistended, normoactive bowel sounds, no guarding, no rebound, no hepatosplenomegaly, no masses. EXTREMITIES: no edema. NEUROLOGICAL: Normal speech, gait not observed. PSYCH: Normal mood, normal affect. SKIN: Warm, dry, normal turgor, no rashes or lesions noted Laboratory Results - last 24 hr 09/23/16 09/23/16 09/23/16 07:40 07:40 12:19 WBC 7.6 D RBC 4.05 Hgb 12.3 D Hct 35.5 MCV 87.7 MCHC 34.6 RDW 13.4 Plt Count 191 MPV 8.3 Neutrophils % 90.3 H Lymphocytes % 5.9 L Monocytes % 3.4 L Eosinophils % 0.1 D Basophils % 0.3 D Sodium 137 Potassium 4.5 Chloride 98 Carbon Dioxide 30 H Anion Gap 9 BUN 17 Creatinine 0.6 POC Glucometer 192 Random Glucose 224 H D Calcium 8.8 Phosphorus 2.9 Magnesium 2.4 09/23/16 09/23/16 09/24/16 16:28 21:22 06:29 WBC RBC Hgb Hct MCV MCHC RDW Plt Count MPV Neutrophils % Lymphocytes % Monocytes % Eosinophils % Basophils % Sodium Potassium Chloride Carbon Dioxide Anion Gap BUN Creatinine POC Glucometer 162 181 155 Random Glucose Calcium Phosphorus Magnesium Active Medications Generic Name Dose Route Start Last Admin Trade Name Freq PRN Reason Stop Dose Admin Acetaminophen 650 mg 09/19/16 08:44 Tylenol - PO Q6H PRN FEVER OR PAIN Albuterol Sulfate 1 amp 09/20/16 15:22 09/21/16 18:06 Ventolin 0.083% Nebulizer Soln - NEB 1 amp Q4H PRN Administration SHORT OF BREATH/WHEEZING Alprazolam 0.25 mg 09/20/16 10:13 09/23/16 23:14 Xanax - PO 0.25 mg Q8H PRN Administration ANXIETY Amlodipine Besylate 5 mg 09/19/16 10:00 09/23/16 09:32 Norvasc - PO 5 mg DAILY [facility]AREN Administration Arformoterol Tartrate 1 amp 09/20/16 10:00 09/23/16 21:25 Brovana (Restricted To Pulmonology/Resp) - NEB 1 amp BID [facility]EN Administration Aspirin 81 mg 09/19/16 12:30 09/23/16 09:32 Asa - PO 81 mg DAILY [facility]EN Administration Atorvastatin Calcium 10 mg 09/19/16 22:00 09/23/16 21:24 Lipitor - PO 10 mg HS KAREN Administration Docusate Sodium 100 mg 09/19/16 14:00 09/24/16 06:32 Colace - PO 100 mg TID KAREN Administration Donepezil HCl 5 mg 09/22/16 15:30 09/23/16 09:32 Aricept - PO 5 mg DAILY [facility] Administration Enoxaparin Sodium 40 mg 09/21/16 10:00 09/23/16 09:33 Lovenox - SQ 40 mg DAILY [facility] Administration Escitalopram Oxalate 10 mg 09/19/16 12:30 09/23/16 09:32 Lexapro - PO 10 mg DAILY [facility]EN Administration Levofloxacin 150 mls @ 100 mls/hr 09/20/16 10:00 09/23/16 09:33 Levaquin 750 Mg Premixed Ivpb - IVPB 100 mls/hr DAILY [facility]EN Administration Insulin Aspart 1 vial 09/23/16 11:00 09/24/16 06:36 Novolog Vial Sliding Scale - SQ 2 units ACHS KAREN Administration Protocol Methylprednisolone Sodium Succinate 40 mg 09/22/16 18:00 09/24/16 02:04 Solu-Medrol - IVPB 40 mg Q8H-IV [facility]EN Administration Montelukast Sodium 10 mg 09/19/16 22:00 09/23/16 21:24 Singulair - PO 10 mg HS K[facility]EN Administration Ondansetron HCl 4 mg 09/19/16 08:44 Zofran Injection IVPB Q6H PRN NAUSEA Pantoprazole Sodium 40 mg 09/19/16 12:45 09/23/16 09:32 Protonix - PO 40 mg DAILY [facility]EN Administration Tiotropium [place] 1 puff 09/20/16 14:30 09/23/16 09:33 Spiriva - IH 1 inh DAILY [facility]EN Administration ASSESSMENT/PLAN: Patient is a 76 year old female with a significant past medical history of COPD and bladder cancer. She presented to the ER on 09/19/2016 for acute COPD exacerbation. Imaging: chest x-ray 09/20/2016: no effusions no infiltrates noted Pulmonary: COPD exacerbation - acute on chronic Assessment/Plan: Pt experiencing shortness of breath on minimal exertion but comfortable at rest Tolerating 2 liters of nasal cannula/alternating with bipap Solumedrol 40mg Q8 IV On Levaquin 750mg started 09/20 On Brovana Scheduled albuterol q4 Pulmonary following Neurology: Short term memory loss Assessment/Plan: Patient states she if forgetful and having difficulty with medications Head CT 09/23/2016: no evidence of acute intracranial hemorrhage, edema or midline shift, mass effect or skull fracture Started on Aricept 5mg by Neuro Monitor Pneumonia Assessment/Plan: On Levaquin 750mg daily started on 09/20 Monitor respiratory status Endocrine: Hyperglycemia - likely secondary to steroids Assessment/Plan: started on Novolog sliding scale monitor BGMs. F.E.N. Fluids: Full Liquid diet Electrolytes: BMP in a.m. Prophylaxis: DVT: Lovenox 40mg GI: colace, protonix Disposition: Continues to requires inpatient care. Likely discharge today once cleared by pulmonary. DNR/DNI Visit type - Emergency Visit Emergency Visit: Yes ED Registration Date: 09/19/16 Care time: The patient presented to the Emergency Department on the above date and was hospitalized for further evaluation of their emergent condition. - New Patient This patient is new to me today: No - Critical Care Critical Care patient: No - Discharge Referral Referred to [facility] Med P.C[facility] No
[2016-09-24 08:48] LABS: BASOPHIL 0.2 % (0-2.0); EOSINOPHIL 0.1 % (0-4.5); MCH 30.4 pg (25.7-33.7); MCHC 34.1 g/dl (32.0-36.0); MEAN CELL VOLUME 89.1 fl (80-96); MEAN PLT VOLUME 8.6 fl (7.5-11.1); NEUTROPHILS 87.9 % (42.8-82.8); PLATELET COUNT 189 K/MM3 (134-434); RDW 13.4 % (11.6-15.6); WHITE BLOOD COUNT 7.8 K/mm3 (4.0-10.0)
--- NOTE | 2016-09-24 09:37 | DS ---
Physical Exam: Physical Exam: SUBJECTIVE: Patient seen and examined. States she had a good nights rest. Denies any pain or discomfort. Denies any shortness of breath. OBJECTIVE: Conversational dyspnea, on 2 liters of continuous oxygen. Appears comfortable at rest Vital Signs Period Temp Pulse Resp BP Sys/Almeida Pulse Ox Last 24 Hr 97.6 F-98.5 F 62-77 18-20 127-146/51-62 96-97 PHYSICAL EXAM GENERAL: The patient is awake, alert, and fully oriented, in no acute distress. HEAD: Normal with no signs of trauma. EYES: PERRL, extraocular movements intact, sclera anicteric, conjunctiva clear. No ptosis. ENT: Ears normal, nares patent, oropharynx clear without exudates, moist mucous membranes. NECK: Trachea midline, full range of motion, supple. LUNGS: Breath sounds diminished posteriorly, dyspnea on exertion HEART: Regular rate and rhythm, S1, S2 without murmur, rub or gallop. ABDOMEN: Soft, nontender, nondistended, normoactive bowel sounds, no guarding, no rebound, no hepatosplenomegaly, no masses. EXTREMITIES: no edema. NEUROLOGICAL: Normal speech, gait not observed. PSYCH: Normal mood, normal affect. SKIN: Warm, dry, normal turgor, no rashes or lesions noted LABS Laboratory Results - last 24 hr 09/23/16 09/23/16 09/23/16 12:19 16:28 21:22 WBC RBC Hgb Hct MCV MCHC RDW Plt Count MPV Neutrophils % Lymphocytes % Monocytes % Eosinophils % Basophils % POC Glucometer 192 162 181 09/24/16 09/24/16 06:29 08:00 WBC 7.8 RBC 4.12 Hgb 12.5 Hct 36.8 MCV 89.1 MCHC 34.1 RDW 13.4 Plt Count 189 MPV 8.6 Neutrophils % 87.9 H Lymphocytes % 7.6 L D Monocytes % 4.2 Eosinophils % 0.1 Basophils % 0.2 POC Glucometer 155 HOSPITAL COURSE: Date of Admission:09/19/16 Date of Discharge: 09/24/16 Patient is a 76 year old female with a significant past medical history of COPD and bladder cancer. She presented to the ER on 09/19/2016 for acute COPD exacerbation. Imaging: chest x-ray 09/20/2016: no effusions no infiltrates noted Pulmonary: COPD exacerbation - acute on chronic - improved Assessment/Plan: Pt experiencing shortness of breath on minimal exertion but comfortable at rest Tolerating 2 liters of nasal cannula/alternating with bipap convert to Prednisone taper on d/c Levaquin 500mg for 3 more days On Brovana Scheduled albuterol q4 Pulmonary following Neurology: Short term memory loss Assessment/Plan: Patient states she if forgetful and having difficulty with medications Head CT 09/23/2016: no evidence of acute intracranial hemorrhage, edema or midline shift, mass effect or skull fracture Started on Aricept 5mg by Neuro Monitor Pneumonia Assessment/Plan: On Levaquin 750mg daily started on 09/20 Monitor respiratory status Endocrine: Hyperglycemia - likely secondary to steroids Assessment/Plan: started on Novolog sliding scale monitor BGMs. F.E.N. Fluids: Full Liquid diet Electrolytes: BMP in a.m. Prophylaxis: DVT: Lovenox 40mg GI: colace, protonix Disposition: DNR/DNI Minutes to complete discharge: 45 Discharge Summary Reason For Visit: COPD WITH ACUTE EXACERBATION, PNEUMONIA Current Active Problems Acute hypoxemic respiratory failure (Acute) COPD with acute exacerbation (Acute) DVT prophylaxis (Acute) Elevated lactic acid level (Acute) Pneumonia (Acute) Condition: Improved - Instructions Diet, Activity, Other Instructions: continue Levaquin 500mg as ordered for 3 more days Check blood capillary glucose while on steroids with sliding scale ac/hs. Taper steroids as follows starting today 09/24/2016 Prednisone 60mg BID x 2 days Prednisone 55mg BID x 2 days Prednisone 50mg BID x 2 days Prednisone 45mg BID x 2 days Prednisone 40mg BID x 2 days Prednisone 35mg BID x 2 days Prednisone 30mg BID x 2 days Prednisone 25mg BID x 2 days Prednisone 20mg BID x 2 days Prednisone 15mg BID x 2 days Prednisone 10mg BID x 2 days Prednisone 5mg Daily and continue daily. Please consult Dr. Deluca (Pulmonary) for further orders of Prednisone. Monitor on 2 liters of oxygen and alternate with Bipap. Referrals: Cameron Floyd MD [Primary Care Provider] - Disposition: [facility] - Home Medications Comprehensive Discharge Medication List: Ambulatory Orders Aspirin [ASA -] 81 mg PO DAILY 03/02/16 Albuterol 2.5/Ipratropium 0.5 [Duoneb -] 1 amp NEB QIDR #10 amp 04/22/16 Amlodipine Besylate [Norvasc -] 5 mg PO DAILY #60 tablet 04/22/16 Montelukast Na [Singulair -] 10 mg PO HS #60 tablet 04/22/16 Escitalopram Oxalate 10 mg PO DAILY #0 tablet 09/17/16 Pantoprazole Sodium 40 mg PO DAILY 09/17/16 This patient is new to me today: No Emergency Visit: Yes ED Registration Date: 09/19/16 Care time: The patient presented to the Emergency Department on the above date and was hospitalized for further evaluation of their emergent condition. Critical Care patient: No - Discharge Referral Referred to [facility] Med P.C.: No
[2016-09-24 09:44] LABS: ALBUMIN 3.5 g/dl (3.4-5.0); ANION GAP 5 (8-16); BILIRUBIN,TOTAL 0.3 mg/dL (0.2-1.0); CALCIUM 8.4 mg/dL (8.5-10.1); CO2 33 mmol/L (21-32); CREATININE 0.7 mg/dL (0.55-1.02); GLUCOSE,RANDOM 157 mg/dL (74-106); SGOT/AST 13 U/L (15-37); SGPT/ALT 25 U/L (12-78); TOT PROT 6.1 g/dl (6.4-8.2)
[2016-09-24 09:45] LABS: ALK PHOS 66 U/L (45-117)
[2016-09-24] MEDS: ARFORMOTEROL TARTRATE 15 MCG/2 ML VIAL NEB SCH (09:59)
[2016-09-24] MEDS ORDERED: PT OWN MED DRAWER 7, Y5N ONE (10:03)
[2016-09-24] MEDS: LEVOFLOXACIN 750 MG IVPB 150 ML IVPB SCH ×2 (10:06→10:40)
[2016-09-24] MEDS: TIOTROPIUM BROMIDE 18 MCG/INH (DEVICE W/ 5 CAPSULES) IH SCH (10:08)
[2016-09-24] MEDS: ENOXAPARIN NA (PORCINE) 40 MG/0.4 ML DISP.SYRIN SQ SCH (10:10)
[2016-09-24 10:11] VITALS: PULSE 74
[2016-09-24] MEDS: DONEPEZIL HCL 5 MG TABLET (FP) PO SCH (10:11)
[2016-09-24] MEDS: amLODIPine BESYLATE 5 MG TABLET (FP) PO SCH (10:11)
[2016-09-24] MEDS: ESCITALOPRAM OXALATE 10 MG TABLET (FP) PO SCH (10:11)
[2016-09-24] MEDS: PANTOPRAZOLE 40 MG TABLET (FP) PO SCH (10:11)
[2016-09-24] MEDS: ASPIRIN 81 MG CHEWABLE TABLETS PO SCH (10:12)
[2016-09-24] MEDS ORDERED: LEVOFLOXACIN 250 MG TABLET (FP) PO ONE (10:21)
== END 2016-09-24 11:55 | DRG 189 ==
LOC: FER 06:58 → FM/S 08:57
PROVIDERS: ADMIT Internal Medicine; ATTEND Nurse Practitioner Family
PROC: 3E0F7GC Introduction of Other Therapeutic Substance into Respiratory Tract, Via Natural or Artificial Opening (ICD-10-PCS; principal; 2016-09-19)
DX: J96.21 Acute and chronic respiratory failure with hypoxia (principal); J18.8 Other pneumonia, unspecified organism; J44.0 Chronic obstructive pulmonary disease with (acute) lower respiratory infection; R00.0 Tachycardia, unspecified; J44.9 Chronic obstructive pulmonary disease, unspecified; E78.00 Pure hypercholesterolemia, unspecified; F41.8 Other specified anxiety disorders; R79.89 Other specified abnormal findings of blood chemistry; E09.9 Drug or chemical induced diabetes mellitus without complications; T38.0X5A Adverse effect of glucocorticoids and synthetic analogues, initial encounter; R41.3 Other amnesia; Z88.0 Allergy status to penicillin; Z87.891 Personal history of nicotine dependence; Z85.51 Personal history of malignant neoplasm of bladder; Z99.81 Dependence on supplemental oxygen; Z96.649 Presence of unspecified artificial hip joint
CPT/HCPCS: 36415; 70450-TC; 71010-TC; 80048; 80053; 81003; 81015; 82550; 83605; 83735; 84100; 84484; 85025; 85379; 87040; 87086; 87254; 87804; 87899; 93005; 93970-TC; 94640; 94660; 97116-GP; 97162-PG; 99284-25; J1644

== ENCOUNTER 2016-12-23 12:26 | Inpatient (IN) | payer OTHER, BC ==
--- NOTE | 2016-12-23 12:39 | PDOC ---
History of Present Illness - General Chief Complaint: Respiratory Distress Stated Complaint: DIFFICULTY BREATHING Time Seen by Provider: 12/23/16 12:36 History Source: Patient, Family Exam Limitations: No Limitations - History of Present Illness Initial Comments: 12/23/16 12:36 76 yo F with h/o COPD, emphysema, here with c/o sob for last few days. does wear home Oxygen,2 - 3 liters, was initially at night but has been wearing most of the time lately. no f/c no cp no n/v has noted mild bilat leg/ foot swelling. , Left >right. no h/o dvt or PE. pt is on nebulizer at home, last this am. also on chronic steroids prednisone 10 mg daily. additional history per daughter is that pt has been acting more argumentative lately, confused and agitated. has been trying to convince her to come to ED for 2 days. states is eating well, no focal weakness. but overall not herself, and confused. clin application specialist dr. saldaña pcp DR Anna. 12/23/16 12:44 per chart review, pt seen for copd exacerbatio and admitted 09/27/16, at that time was seen by nuerology for short term memory loss in addition, had ct head which was negative for actute CVA mass or hemorrhage. and was started on aricept by nuerology. Past History - Past Medical History Allergies/Adverse Reactions: Allergies Allergy/AdvReac Type Severity Reaction Status Date / Time Penicillins Allergy Verified 12/23/16 12:29 strawberry Allergy Verified 12/23/16 12:29 Home Medications: Ambulatory Orders Aspirin [ASA -] 81 mg PO DAILY 03/02/16 Montelukast Na [Singulair -] 10 mg PO HS #60 tablet 04/22/16 Escitalopram Oxalate 10 mg PO DAILY #0 tablet 09/17/16 Acetaminophen [Tylenol .Regular Strength -] 650 mg PO Q6H PRN #0 tablet Alprazolam [Xanax] 0.25 mg PO Q8H PRN #10 tablet MDD 3 tablets 09/24/16 Arformoterol Tartrate [Brovana -] 1 amp NEB BID #0 amp 09/24/16 Donepezil HCl [Aricept -] 5 mg PO DAILY #0 tablet 09/24/16 Prednisone 10 mg PO BID 12/23/16 Anemia: No Asthma: No Cancer: Yes (BLADDER CANCER) Cardiac Disorders: Yes CVA: No COPD: Yes (HOME O2 AT NIGHT,) CHF: No Dementia: No Diabetes: No GI Disorders: No Disorders: Yes (BLADDER CANCER treated with chemo wash) HTN: No Hypercholesterolemia: Yes Liver Disease: No Psychiatric Problems: Yes (anxiety) Seizures: No Thyroid Disease: No - Surgical History Abdominal Surgery: No Appendectomy: Yes ( CHILD) Cardiac Surgery: No Cholecystectomy: No Lung Surgery: No Neurologic Surgery: No Orthopedic Surgery: Yes (LEFT FOOT SURGERY, r hip surgery) - Family Disease History Family Disease History: Heart Disease: Mother - Reproductive History Dysfunctional Uterine Bleeding: No - Immunization History Immunization Up to Date: Yes - Psycho/Social/Smoking Cessation Hx Anxiety: Yes Suicidal Ideation: No Smoking Status: No Smoking History: Former smoker Years of Tobacco Use: 20 Have you smoked in the past 12 months: Yes Number of Cigarettes Smoked Daily: 1 If you are a former smoker, when did you quit?: 2015 Cigars Per Day: 0 'Breaking Loose' booklet given: 04/17/16 Hx Alcohol Use: No Drug/Substance Use Hx: No Substance Use Type: None Hx Substance Use Treatment: No Review of Systems - Review of Systems Constitutional: No: Diaphoresis, Fever Respiratory: Yes: Cough, Shortness of Breath, SOB at Rest. No: Stridor, Wheezing, Productive cough Cardiac (ROS): Yes: Edema. No: Chest Pain ABD/GI: No: Abd. Pain w/ defecation, Blood Streaked Bowels, Constipated, Diarrhea : No: Burning, Dysuria Musculoskeletal: No: Muscle Weakness Neurological: Yes: Other (forgetfulness) *Physical Exam - Physical Exam General Appearance: Yes: Nourished, Appropriately Dressed HEENT: positive: Normal ENT Inspection Neck: positive: Trachea midline Respiratory/Chest: positive: Decreased Breath Sounds (decreased bilateral breath sounds ). negative: Respiratory Distress Cardiovascular: positive: Regular Rhythm, Regular Rate, S1, S2 Gastrointestinal/Abdominal: positive: Normal Bowel Sounds. negative: Tender, Flat, Soft Musculoskeletal: positive: Normal Inspection. negative: CVA Tenderness Extremity: positive: Normal Capillary Refill, Pedal Edema, Other (mild nonpitting edema to mid roche, left greater than right) Integumentary: positive: Normal Color, Dry, Warm Neurologic: positive: plate straightener II-XII NML intact, Fully Oriented, Alert, Normal Mood/ Affect, Normal Response, Motor Strength 5/5 Heart Score/ECG Review #1 General ECG Interpretation: Sinus Rhythm, Normal Rate, Normal Intervals, No acute ischemic changes Compared to previous ECG there are: No significant change (TWI V4 - V6, unchanged comparison 09/29/16) - Deep Run Deep Run: Normal ED Treatment Course - LABORATORY CBC & Chemistry Diagram: 12/23/16 13:15 12/23/16 13:16 - RADIOLOGY Radiology Studies Ordered: 12/23/16 13:20 no acute diseae process Chest X-Ray Result: No Infiltrates Medical Decision Making - Medical Decision Making 12/23/16 12:47 76 yo F with ho copd, recent history of foregetfulness, confusion. differential: worsenign copd, hypoxia, infection such as pna or uti, electrolyte abnormality, copd exacerbation, pt with nonfocal exam , cva less likely. will d/w dr. anna and dr saldaña. nebs, steroids, ua labs ekg cxr. 12/23/16 13:42 discussion with daughter , pt is becoming more and more agitated at home, decreased sleep in evening, pt is unable to continue caring for her in home alone without help. during discussion with pt gets labored breathing with talking. will add steroids, admit for COPD, in addition pt will require social work evaluation to assess for placement or home economics teacher services to help care for pt. in addition to evaluation of worsening dementia, and lability agitation at home. *DC/Admit/Observation/Transfer Diagnosis at time of Disposition: COPD with acute exacerbation, Dementia - Discharge Dispostion Condition at time of disposition: Fair Admit: Yes
[2016-12-23] MEDS ORDERED: ALBUTEROL SO4 2.5/IPRATROPIUM 0.5 INH SOL 3 ML VIAL.NEB. NEB ONE ×2 (12:41→13:16)
[2016-12-23 13:21] LABS: BASOPHIL 1.5 % (0-2.0); EOSINOPHIL 0.5 % (0-4.5); MCH 31.6 pg (25.7-33.7); MCHC 34.2 g/dl (32.0-36.0); MEAN CELL VOLUME 92.3 fl (80-96); NEUTROPHILS 84.7 % (42.8-82.8); PLATELET COUNT 228 K/MM3 (134-434); RDW 13.6 % (11.6-15.6); WHITE BLOOD COUNT 10.6 K/mm3 (4.0-10.8)
[2016-12-23 13:23] LABS: PH,URINE 5.5 (4.5-8); URINE APPEARANCE Clear; URINE BILIRUBIN Negative (NEGATIVE); URINE BLOOD Trace-intact (NEGATIVE); URINE COLOR YELLOW; URINE GLUCOSE (UA) Negative (NEGATIVE); URINE KETONE Negative (NEGATIVE); URINE LEUK ESTERASE 1+ (NEGATIVE); URINE NITRITE Negative (NEGATIVE); URINE PROTEIN Negative (NEGATIVE); URINE UROBILINOGEN 0.2 (0.2-1.0)
[2016-12-23 13:40] LABS: ALBUMIN 4.1 g/dl (3.5-5.0); ALK PHOS 70 U/L (32-92); ANION GAP 6 (8-16); BILIRUBIN,TOTAL 0.6 mg/dl (0.2-1.0); CALCIUM 9.1 mg/dl (8.4-10.2); CO2 28 mmol/L (22-28); CREATININE 0.7 mg/dl (0.6-1.3); GLUCOSE,RANDOM 171 mg/dl (74-106); SGOT/AST 20 U/L (10-42); SGPT/ALT 18 U/L (10-40); TOT PROT 6.4 g/dl (6.4-8.3)
[2016-12-23 13:41] LABS: CPK(DFH) 40 IU/L (26-140)
[2016-12-23] MEDS ORDERED: methylPREDNISolone NA SUCC 125 MG/2 ML VIAL IVPB ONE (13:48)
[2016-12-23] MEDS ORDERED: methylPREDNISolone NA SUCC 125 MG/2 ML VIAL ONE (14:01)
[2016-12-23 15:19] LABS: TROPONIN I (DFP) < 0.03 ng/ml (0.03-0.50)
[2016-12-23 16:04] VITALS: BMI 23.2
--- NOTE | 2016-12-23 17:11 | PN ---
Progress Note (short form) - Note Progress Note: PULMONARY CONSULTATION DICTATED 12/23/16 IMP ACUTE ON CHRONIC HYPOXEMIC RESPIRATORY FAILURE COPD EXACERBATION ANXIETY HLD H/O BLADDER CA PLAN IV STEROIDS INHALED BRONCHODILATORS NASAL O2 ANXIOLYTICS DR SAAB Problem List - Problems (1) COPD with acute exacerbation Code(s): J44.1 - CHRONIC OBSTRUCTIVE PULMONARY DISEASE W (ACUTE) EXACERBATION (2) Anxiety Code(s): F41.9 - ANXIETY DISORDER, UNSPECIFIED (3) Bladder cancer Code(s): C67.9 - MALIGNANT NEOPLASM OF BLADDER, UNSPECIFIED Qualifiers: Bladder location: unspecified site Qualified Code(s): C67.9 - Malignant neoplasm of bladder, unspecified (4) Acute and chronic respiratory failure with hypoxia Code(s): J96.21 - ACUTE AND CHRONIC RESPIRATORY FAILURE WITH HYPOXIA
--- NOTE | 2016-12-23 17:33 | EKG ---
Test Reason : Blood Pressure : / mmHG Vent. Rate : 084 BPM Atrial Rate : 084 BPM P-R Int : 106 ms QRS Dur : 086 ms QT Int : 384 ms P-R-T Axes : 002 058 074 degrees QTc Int : 453 ms POOR DATA QUALITY, INTERPRETATION MAY BE ADVERSELY AFFECTED SINUS RHYTHM WITH SHORT WA T WAVE ABNORMALITY, CONSIDER LATERAL ISCHEMIA WHEN COMPARED WITH ECG OF 19-SEP-2016 07:11, NON-SPECIFIC CHANGE IN ST SEGMENT IN INFERIOR LEADS T WAVE INVERSION NOW EVIDENT IN ANTERIOR LEADS Confirmed by MD TONIO, CATHY ([id number]) on 12/23/2016 5:33:13 PM Referred By: BRAULIO ROBERTS Confirmed By:CATHY ELIZALDE MD
[2016-12-23 17:44] LABS: URINE BACTERIA FEW /hpf (NEGATIVE); URINE RBC 0-2 /hpf (0-3)
[2016-12-23] MEDS ORDERED: ACETAMINOPHEN 325 MG TABLET (FP) PO PRN (19:08)
--- NOTE | 2016-12-23 19:19 | HP ---
CHIEF COMPLAINT: SOB PCP: Dr. Mariel NOBLE: Dr. Deluca HISTORY OF PRESENT ILLNESS: This is a 76 y/o female with a PMHx of COPD. Who presents to the ED with increased SOB, CORTES x 2-3 days. Patient reports having to use her O2 during the day as well as night. patient was admitted last September for COPD exacerbation. Patient denies fever, chills, cough, CP, AP, N/V/D, constipation, dysuria. 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 ER course was notable for: (1) Chest Xray report- No acute pulmonary disease (2) WBC 10.6 (3) Recent Travel: None PAST MEDICAL HISTORY: Asthma COPD O2 dependent Hyperlipidemia Bladder Ca (treated with chemo wash) Anxiety PAST SURGICAL HISTORY: Appendectomy Right Joint Replacement Left Foot Social History: Smoking: Former 3/4PPD quit 11 yrs ago Alcohol: None Drugs: None Family History: Allergies Penicillins Allergy (Verified 12/23/16 12:29) strawberry Allergy (Verified 12/23/16 12:29) HOME MEDICATIONS: Home Medications Medication Instructions Recorded Aspirin [ASA -] 81 mg PO DAILY 03/02/16 Montelukast Na [Singulair -] 10 mg PO HS #60 tablet 04/22/16 Escitalopram Oxalate 10 mg PO DAILY #0 tablet 09/17/16 Acetaminophen [Tylenol .Regular 650 mg PO Q6H PRN #0 tablet 09/24/16 Strength -] Alprazolam [Xanax] 0.25 mg PO Q8H PRN #10 tablet MDD 09/24/16 3 tablets Arformoterol Tartrate [Brovana -] 1 amp NEB BID #0 amp 09/24/16 Donepezil HCl [Aricept -] 5 mg PO DAILY #0 tablet 09/24/16 Prednisone 10 mg PO BID 12/23/16 REVIEW OF SYSTEMS CONSTITUTIONAL: Absent: fever, chills, diaphoresis, generalized weakness, malaise, loss of appetite, weight change HEENT: Absent: rhinorrhea, nasal congestion, throat pain, throat swelling, difficulty swallowing, mouth swelling, ear pain, eye pain, visual changes CARDIOVASCULAR: Absent: chest pain, syncope, palpitations, irregular heart rate, lightheadedness , peripheral edema RESPIRATORY: shortness of breath, dyspnea with exertion Absent: cough, orthopnea, wheezing, stridor, hemoptysis GASTROINTESTINAL: Absent: abdominal pain, abdominal distension, nausea, vomiting, diarrhea, constipation, melena, hematochezia GENITOURINARY: Absent: dysuria, frequency, urgency, hesitancy, hematuria, flank pain, genital pain MUSCULOSKELETAL: Absent: myalgia, arthralgia, joint swelling, back pain, neck pain SKIN: Absent: rash, itching, pallor HEMATOLOGIC/IMMUNOLOGIC: Absent: easy bleeding, easy bruising, lymphadenopathy, frequent infections ENDOCRINE: Absent: unexplained weight gain, unexplained weight loss, heat intolerance, cold intolerance NEUROLOGIC: Absent: headache, focal weakness or paresthesias, dizziness, unsteady gait, seizure, mental status changes, bladder or bowel incontinence PSYCHIATRIC: Absent: anxiety, depression, suicidal or homicidal ideation, hallucinations. PHYSICAL EXAMINATION Vital Signs - 24 hr 12/23/16 12/23/16 14:57 15:51 Temperature 98.6 F Pulse Rate 63 Pulse Rate [ 84 Right Radial] Respiratory 24 26 H Rate Blood Pressure 143/51 Blood Pressure 127/57 [Right Arm] O2 Sat by Pulse 97 98 Oximetry (%) GENERAL: Awake, alert, and fully oriented, in no acute distress. HEAD: Normal with no signs of trauma. EYES: Pupils equal, round and reactive to light, extraocular movements intact, sclera anicteric, conjunctiva clear. No lid lag. EARS, NOSE, THROAT: Ears normal, nares patent, oropharynx clear without exudates. Dry mucous membranes. NECK: Normal range of motion, supple without lymphadenopathy, JVD, or masses. LUNGS: Diminished bilaterally to right mid lobe/base, left base +pursed lip breathing. No wheezes, and no crackles. No accessory muscle use. HEART: Regular rate and rhythm, normal S1 and S2 without murmur, rub or gallop. ABDOMEN: Soft, nontender, not distended, normoactive bowel sounds, no guarding, no rebound, no masses. No hepatomegaly or splenomegaly. MUSCULOSKELETAL: Normal range of motion at all joints. No bony deformities or tenderness. No CVA tenderness. UPPER EXTREMITIES: 2+ pulses, warm, well-perfused. No cyanosis. No clubbing. No peripheral edema. LOWER EXTREMITIES: 2+ pulses, warm, well-perfused. No calf tenderness. No peripheral edema. NEUROLOGICAL: Cranial nerves II-XII intact. Normal speech. Gait not observed. PSYCHIATRIC: Cooperative. Good eye contact. Appropriate mood and affect. Mini Mental 2/3, Clock Draw- WNL. SKIN: Warm, dry, normal turgor, no rashes or lesions noted, normal capillary refill. Laboratory Results - last 24 hr 12/23/16 12/23/16 12/23/16 13:15 13:16 13:16 WBC 10.6 D RBC 4.40 Hgb 13.9 D Hct 40.6 MCV 92.3 MCH 31.6 MCHC 34.2 RDW 13.6 Plt Count 228 D MPV 8.0 Neutrophils % 84.7 H Lymphocytes % 10.0 D Monocytes % 3.3 L Eosinophils % 0.5 D Basophils % 1.5 D Sodium 136 Potassium 4.1 Chloride 102 Carbon Dioxide 28 Anion Gap 6 L BUN 14 Creatinine 0.7 Creat Clearance w eGFR > 60 Random Glucose 171 H D Calcium 9.1 Total Bilirubin 0.6 AST 20 ALT 18 Alkaline Phosphatase 70 D Creatine Kinase 40 Troponin I < 0.03 L B-Natriuretic Peptide Total Protein 6.4 Albumin 4.1 Urine Color Urine Appearance Urine pH Ur Specific Cement Urine Protein Urine Glucose (UA) Urine Ketones Urine Blood Urine Nitrite Urine Bilirubin Urine Urobilinogen Ur Leukocyte Esterase Urine RBC Urine WBC Ur Epithelial Cells Urine Bacteria 12/23/16 12/23/16 13:16 13:17 WBC RBC Hgb Hct MCV MCH MCHC RDW Plt Count MPV Neutrophils % Lymphocytes % Monocytes % Eosinophils % Basophils % Sodium Potassium Chloride Carbon Dioxide Anion Gap BUN Creatinine Creat Clearance w eGFR Random Glucose Calcium Total Bilirubin AST ALT Alkaline Phosphatase Creatine Kinase Troponin I B-Natriuretic Peptide 92.09 Total Protein Albumin Urine Color Yellow Urine Appearance Clear Urine pH 5.5 Ur Specific Cement <= 1.005 Urine Protein Negative Urine Glucose (UA) Negative Urine Ketones Negative Urine Blood Trace-intact Urine Nitrite Negative Urine Bilirubin Negative Urine Urobilinogen 0.2 Ur Leukocyte Esterase 1+ H Urine RBC 0-2 Urine WBC 2-4 Ur Epithelial Cells Few Urine Bacteria Few ASSESSMENT/PLAN: This is a 76 y/o female with a PMHx of: COPD (o2 dep), Asthma, HLD, Anxiety, Bladder Ca(Chemo Wash). Admitted for Acute on Chronic Hypoxemic Respiratory Failure, Acute COPD Exacerbation, for further evaluation of their emergent condition. Problems: 1. Acute on Chronic Hypoxemic Respiratory Failure 2. Acute COPD Exacerbation 3. Asthma 4. Hyperlipidemia 5. Anxiety 6. Dementia Plan: 1. Pulm: Acute on Chronic Hypoxemic Respiratory Failure - Likely secondary to COPD Exacerbation - Pulm following - O2 - Spo2 - Chest Xray reviewed - Repeat CBC, BMP in am - Continue corticosteroids // COPD - Duonebs - Pulm Following - Continue Corticosteriods - O2 - Monitor vitals // Asthma - Continue Singulair 2. Card: Hyperlipidemia - Will start Lipitor - Low Cholesterol Diet 3. Psych: Anxiety - Continue Xanax // Dementia - Continue Aricept - Social Work Consult- daughter unable to provide care, per ED record - Case Management- possible SNF placement 4. FEN - Tolerates PO fluids - Replete lytes - Low Na. Low Cholesterol Diet 5. DVT Prophylaxis - OOB - SCDs - Heparin SQ Code Status: Dispo: Requires Inpatient Care Problem List - Problem (1) Acute and chronic respiratory failure with hypoxia Code(s): J96.21 - ACUTE AND CHRONIC RESPIRATORY FAILURE WITH HYPOXIA (2) COPD with acute exacerbation Code(s): J44.1 - CHRONIC OBSTRUCTIVE PULMONARY DISEASE W (ACUTE) EXACERBATION (3) Dementia Code(s): F03.90 - UNSPECIFIED DEMENTIA WITHOUT BEHAVIORAL DISTURBANCE (4) DVT prophylaxis Code(s): [id number] - (5) Anxiety Code(s): F41.9 - ANXIETY DISORDER, UNSPECIFIED Visit type - Emergency Visit Emergency Visit: Yes ED Registration Date: 12/23/16 Care time: The patient presented to the Emergency Department on the above date and was hospitalized for further evaluation of their emergent condition. - New Patient This patient is new to me today: Yes Date on this admission: 12/23/16 - Critical Care Critical Care patient: No
[2016-12-23] MEDS: ALBUTEROL SO4 0.083% IH SOL 2.5 MG/3 ML VIAL.NEB. NEB PRN (19:33)
[2016-12-23] MEDS: BUDESONIDE/FORMETEROL FUMARATE 160/4.5 mcg INHALER IH SCH (19:50)
[2016-12-23] MEDS: methylPREDNISolone NA SUCC 40 MG/1 ML VIAL IVPB SCH (21:40)
[2016-12-23] MEDS: ATORVASTATIN CA 10 MG TABLET (FP) PO SCH (21:40)
[2016-12-23] MEDS: MONTELUKAST NA 10 MG TABLET PO SCH (21:40)
[2016-12-23] MEDS: ARFORMOTEROL TARTRATE 15 MCG/2 ML VIAL NEB SCH (21:40)
[2016-12-23] MEDS ORDERED: ATORVASTATIN CA 20 MG TABLET (FP) PO SCH (22:00)
[2016-12-24] MEDS: methylPREDNISolone NA SUCC 40 MG/1 ML VIAL IVPB SCH ×3 (04:42→22:00)
[2016-12-24] MEDS: BUDESONIDE/FORMETEROL FUMARATE 160/4.5 mcg INHALER IH SCH ×3 (06:18→21:59)
--- NOTE | 2016-12-24 06:56 | PN ---
Progress Note, Physician History of Present Illness: pulmonary alert,feeling better,less dyspneic - Current Medication List Current Medications: Active Medications Acetaminophen (Tylenol -) 650 mg PO Q6H PRN PRN Reason: FEVER OR PAIN Albuterol Sulfate (Ventolin 0.083% Nebulizer Soln -) 1 amp NEB Q4H PRN PRN Reason: SHORT OF BREATH/WHEEZING Last Admin: 12/23/16 19:33 Dose: 1 amp Alprazolam (Xanax -) 0.25 mg PO Q8H PRN PRN Reason: ANXIETY Arformoterol Tartrate (Brovana (Restricted To Pulmonology/Resp) -) 1 amp NEB BID [facility] Last Admin: 12/23/16 21:40 Dose: 1 amp Aspirin (Asa -) 81 mg PO DAILY [facility] Atorvastatin Calcium (Lipitor -) 10 mg PO HS [facility] Last Admin: 12/23/16 21:40 Dose: 10 mg Budesonide/Formoterol Fumarate (Symbicort 160/4.5mcg -) 1 puff IH Q12H [facility] Last Admin: 12/24/16 06:18 Dose: 1 inhaler Donepezil HCl (Aricept -) 5 mg PO DAILY [facility] Escitalopram Oxalate (Lexapro -) 10 mg PO DAILY [facility] Heparin Sodium (Porcine) (Heparin -) 5,000 unit SQ BID [facility] Methylprednisolone Sodium Succinate (Solu-Medrol -) 40 mg IVPB Q8H [facility] Last Admin: 12/24/16 04:42 Dose: 40 mg Montelukast Sodium (Singulair -) 10 mg PO HS [facility] Last Admin: 12/23/16 21:40 Dose: 10 mg Tiotropium [place] (Spiriva -) 1 puff IH DAILY [facility] - Objective Vital Signs: Vital Signs Temperature 98.4 F 12/24/16 05:45 Pulse Rate 83 12/24/16 05:45 Respiratory Rate 20 12/24/16 05:45 Blood Pressure 139/65 12/24/16 05:45 O2 Sat by Pulse Oximetry (%) 100 12/24/16 05:45 Constitutional: Yes: Well Nourished, Calm Eyes: Yes: WNL HENT: Yes: WNL Neck: Yes: WNL Cardiovascular: Yes: Regular Rate and Rhythm, S1, S2 Respiratory: Yes: Diminished Gastrointestinal: Yes: Normal Bowel Sounds, Soft Extremities: Yes: WNL Edema: No Problem List - Problems (1) COPD with acute exacerbation Code(s): J44.1 - CHRONIC OBSTRUCTIVE PULMONARY DISEASE W (ACUTE) EXACERBATION (2) Anxiety Code(s): F41.9 - ANXIETY DISORDER, UNSPECIFIED (3) Bladder cancer Code(s): C67.9 - MALIGNANT NEOPLASM OF BLADDER, UNSPECIFIED Qualifiers: Bladder location: unspecified site Qualified Code(s): C67.9 - Malignant neoplasm of bladder, unspecified (4) Acute and chronic respiratory failure with hypoxia Code(s): J96.21 - ACUTE AND CHRONIC RESPIRATORY FAILURE WITH HYPOXIA Assessment/Plan IMP ACUTE ON CHRONIC HYPOXEMIC RESPIRATORY FAILURE COPD EXACERBATION ANXIETY HLD H/O BLADDER CA PLAN IV STEROIDS START TAPER IN AM INHALED BRONCHODILATORS NASAL O2 ANXIOLYTICS DR SAAB Problem List - Problems (1) COPD with acute exacerbation Code(s): J44.1 - CHRONIC OBSTRUCTIVE PULMONARY DISEASE W (ACUTE) EXACERBATION (2) Anxiety Code(s): F41.9 - ANXIETY DISORDER, UNSPECIFIED (3) Bladder cancer Code(s): C67.9 - MALIGNANT NEOPLASM OF BLADDER, UNSPECIFIED Qualifiers: Bladder location: unspecified site Qualified Code(s): C67.9 - Malignant neoplasm of bladder, unspecified (4) Acute and chronic respiratory failure with hypoxia Code(s): J96.21 - ACUTE AND CHRONIC RESPIRATORY FAILURE WITH HYPOXIA
--- NOTE | 2016-12-24 07:21 | PN ---
Physical Exam: SUBJECTIVE: Patient seen and examined, patient reports feeling well, reports an improvement in her breathing OBJECTIVE: patient is a 76 y/o female with a past medical history of COPD (O2 dependent), Hyperlipidemia, Bladder Ca, and anxiety. Patient was admitted from the emergency department for coped exacerbation. Vital Signs Period Temp Pulse Resp BP Sys/Almeida Pulse Ox Last 24 Hr 97.7 F-98.6 F 63-92 20-26 127-143/51-65 97-100 GENERAL: The patient is awake, alert, and fully oriented, in no acute distress. HEAD: Normal with no signs of trauma. EYES: PERRL, extraocular movements intact, sclera anicteric, conjunctiva clear. No ptosis. ENT: Ears normal, nares patent, oropharynx clear without exudates, moist mucous membranes. NECK: Trachea midline, full range of motion, supple. LUNGS: Breath sounds equal, clear to auscultation bilaterally to apexes, diminished to bases, rr 24, no wheezes, no crackles, no accessory muscle use. HEART: Regular rate and rhythm, S1, S2 without murmur, rub or gallop. ABDOMEN: Soft, nontender, nondistended, normoactive bowel sounds, no guarding, no rebound, no hepatosplenomegaly, no masses. EXTREMITIES: 2+ pulses, warm, well-perfused, no edema. NEUROLOGICAL: Cranial nerves II through XII grossly intact. Normal speech, gait not observed. PSYCH: Normal mood, normal affect. SKIN: Warm, dry, normal turgor, no rashes or lesions noted Active Medications Generic Name Dose Route Start Last Admin Trade Name Freq PRN Reason Stop Dose Admin Acetaminophen 650 mg 12/23/16 19:08 Tylenol - PO Q6H PRN FEVER OR PAIN Albuterol Sulfate 1 amp 12/23/16 14:49 12/23/16 19:33 Ventolin 0.083% Nebulizer Soln - NEB 1 amp Q4H PRN Administration SHORT OF BREATH/WHEEZING Alprazolam 0.25 mg 12/23/16 19:08 Xanax - PO Q8H PRN ANXIETY Arformoterol Tartrate 1 amp 12/23/16 22:00 12/23/16 21:40 Brovana (Restricted To Pulmonology/Resp) - NEB 1 amp BID KAREN Administration Aspirin 81 mg 12/24/16 10:00 Asa - PO DAILY [facility] Atorvastatin Calcium 10 mg 12/23/16 22:00 12/23/16 21:40 Lipitor - PO 10 mg HS KAREN Administration Budesonide/Formoterol Fumarate 1 puff 12/23/16 19:15 12/24/16 06:18 Symbicort 160/4.5mcg - IH 1 inhaler Q12H KAREN Administration Donepezil HCl 5 mg 12/24/16 10:00 Aricept - PO DAILY [facility] Escitalopram Oxalate 10 mg 12/24/16 10:00 Lexapro - PO DAILY [facility] Heparin Sodium (Porcine) 5,000 unit 12/24/16 10:00 Heparin - SQ BID KAREN Methylprednisolone Sodium Succinate 40 mg 12/23/16 21:00 12/24/16 04:42 Solu-Medrol - IVPB 40 mg Q8H KAREN Administration Montelukast Sodium 10 mg 12/23/16 22:00 12/23/16 21:40 Singulair - PO 10 mg HS KAREN Administration Tiotropium [place] 1 puff 12/24/16 10:00 Spiriva - IH DAILY [facility] CBC WBC 10.6 K/mm3 (4.0-10.8) D 12/23/16 13:15 RBC 4.40 M/mm3 (3.60-5.2) 12/23/16 13:15 Hgb 13.9 GM/dl (10.7-15.3) D 12/23/16 13:15 Hct 40.6 % (32.4-45.2) 12/23/16 13:15 MCV 92.3 fl (80-96) 12/23/16 13:15 MCH 31.6 pg (25.7-33.7) 12/23/16 13:15 MCHC 34.2 g/dl (32.0-36.0) 12/23/16 13:15 RDW 13.6 % (11.6-15.6) 12/23/16 13:15 Plt Count 228 K/MM3 (134-434) D 12/23/16 13:15 MPV 8.0 fl (7.5-11.1) 12/23/16 13:15 Neutrophils % 84.7 % (42.8-82.8) H 12/23/16 13:15 Lymphocytes % 10.0 % (8-40) D 12/23/16 13:15 Monocytes % 3.3 % (3.8-10.2) L 12/23/16 13:15 Eosinophils % 0.5 % (0-4.5) D 12/23/16 13:15 Basophils % 1.5 % (0-2.0) D 12/23/16 13:15 CMP Sodium 136 mmol/L (136-145) 12/23/16 13:16 Potassium 4.1 mmol/L (3.5-5.1) 12/23/16 13:16 Chloride 102 mmol/L (98-107) 12/23/16 13:16 Carbon Dioxide 28 mmol/L (22-28) 12/23/16 13:16 Anion Gap 6 (8-16) L 12/23/16 13:16 BUN 14 mg/dl (7-18) 12/23/16 13:16 Creatinine 0.7 mg/dl (0.6-1.3) 12/23/16 13:16 Creat Clearance w eGFR > 60 (>60) 12/23/16 13:16 Random Glucose 171 mg/dl (74-106) H D 12/23/16 13:16 Calcium 9.1 mg/dl (8.4-10.2) 12/23/16 13:16 Total Bilirubin 0.6 mg/dl (0.2-1.0) 12/23/16 13:16 AST 20 U/L (10-42) 12/23/16 13:16 ALT 18 U/L (10-40) 12/23/16 13:16 Alkaline Phosphatase 70 U/L (32-92) D 12/23/16 13:16 Creatine Kinase 40 IU/L (26-140) 12/23/16 13:16 Troponin I < 0.03 ng/ml (0.03-0.50) L 12/23/16 13:16 B-Natriuretic Peptide 92.09 pg/ml (5-450) 12/23/16 13:16 Total Protein 6.4 g/dl (6.4-8.3) 12/23/16 13:16 Albumin 4.1 g/dl (3.5-5.0) 12/23/16 13:16 IMAGING chest xray: no acute pathology ASSESSMENT/PLAN: 1. 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 Low Cholesterol Diet DVT Prophylaxis - OOB - SCDs - zantac - Heparin SQ Dispo: Requires Inpatient Care, pt is requesting short term rehab at [facility] worker consulted Code Status: full code Visit type - Emergency Visit Emergency Visit: Yes ED Registration Date: 12/23/16 Care time: The patient presented to the Emergency Department on the above date and was hospitalized for further evaluation of their emergent condition. - New Patient This patient is new to me today: Yes Date on this admission: 12/24/16 - Critical Care Critical Care patient: No - Discharge Referral Referred to [facility] Med P.C.: Yes Physician Referral: Cameron Floyd MD (Int Med)
[2016-12-24] MEDS ORDERED: PT OWN MED DRAWER 7, Y5N ONE ×2 (09:27→21:54)
[2016-12-24] MEDS: TIOTROPIUM BROMIDE 18 MCG/INH (DEVICE W/ 5 CAPSULES) IH SCH (09:39)
[2016-12-24] MEDS: ESCITALOPRAM OXALATE 10 MG TABLET (FP) PO SCH (09:40)
[2016-12-24] MEDS: DONEPEZIL HCL 5 MG TABLET (FP) PO SCH (09:40)
[2016-12-24] MEDS: ASPIRIN 81 MG CHEWABLE TABLETS PO SCH (09:40)
[2016-12-24] MEDS: HEPARIN NA (PORCINE) 5,000 UNITS/ML 1ML VIAL SQ SCH ×2 (09:41→21:57)
[2016-12-24] MEDS: RANITIDINE HCL 150 MG TABLET (FP) PO SCH ×2 (09:42→21:59)
[2016-12-24] MEDS: ARFORMOTEROL TARTRATE 15 MCG/2 ML VIAL NEB SCH ×2 (09:52→21:57)
[2016-12-24 12:05] LABS: BASOPHIL 0.8 % (0-2.0); MCHC 35.2 g/dl (32.0-36.0); MEAN PLT VOLUME 8.6 fl (7.5-11.1); NEUTROPHILS 92.5 % (42.8-82.8); PLATELET COUNT 224 K/MM3 (134-434); RDW 13.4 % (11.6-15.6); WHITE BLOOD COUNT 14.7 K/mm3 (4.0-10.8)
[2016-12-24 16:30] LABS: SGPT/ALT 98 U/L (10-40)
[2016-12-24 16:38] LABS: ALBUMIN 4.1 g/dl (3.5-5.0); ALK PHOS 74 U/L (32-92); ANION GAP 7 (8-16); BILIRUBIN,TOTAL 0.7 mg/dl (0.2-1.0); CO2 25 mmol/L (22-28); CREATININE 0.7 mg/dl (0.6-1.3); GLUCOSE,RANDOM 293 mg/dl (74-106); SGOT/AST 25 U/L (10-42); TOT PROT 6.6 g/dl (6.4-8.3)
[2016-12-24] MEDS: MONTELUKAST NA 10 MG TABLET PO SCH (21:57)
[2016-12-24] MEDS: ATORVASTATIN CA 10 MG TABLET (FP) PO SCH (21:59)
[2016-12-24] MEDS ORDERED: ATORVASTATIN CA 10 MG TABLET (FP) PO SCH (22:00)
[2016-12-24] MEDS: ALPRAZolam 0.25 MG TABLET PO PRN (22:03)
--- NOTE | 2016-12-25 06:21 | PN ---
Progress Note, Physician History of Present Illness: pulmonary alert,less dyspneic,c/o nasal stuffiness - Current Medication List Current Medications: Active Medications Acetaminophen (Tylenol -) 650 mg PO Q6H PRN PRN Reason: FEVER OR PAIN Albuterol Sulfate (Ventolin 0.083% Nebulizer Soln -) 1 amp NEB Q4H PRN PRN Reason: SHORT OF BREATH/WHEEZING Last Admin: 12/23/16 19:33 Dose: 1 amp Alprazolam (Xanax -) 0.25 mg PO Q8H PRN PRN Reason: ANXIETY Last Admin: 12/24/16 22:03 Dose: 0.25 mg Arformoterol Tartrate (Brovana (Restricted To Pulmonology/Resp) -) 1 amp NEB BID [facility] Last Admin: 12/24/16 21:57 Dose: 1 amp Aspirin (Asa -) 81 mg PO DAILY [facility] Last Admin: 12/24/16 09:40 Dose: 81 mg Atorvastatin Calcium (Lipitor -) 10 mg PO HS [facility] Last Admin: 12/24/16 21:59 Dose: 10 mg Budesonide/Formoterol Fumarate (Symbicort 160/4.5mcg -) 2 puff IH Q12H [facility] Last Admin: 12/24/16 21:59 Dose: 2 inh Donepezil HCl (Aricept -) 5 mg PO DAILY [facility] Last Admin: 12/24/16 09:40 Dose: 5 mg Escitalopram Oxalate (Lexapro -) 10 mg PO DAILY [facility] Last Admin: 12/24/16 09:40 Dose: 10 mg Heparin Sodium (Porcine) (Heparin -) 5,000 unit SQ BID [facility] Last Admin: 12/24/16 21:57 Dose: 5,000 unit Methylprednisolone Sodium Succinate (Solu-Medrol -) 40 mg IVPB Q12H [facility] Montelukast Sodium (Singulair -) 10 mg PO HS [facility] Last Admin: 12/24/16 21:57 Dose: 10 mg Ranitidine HCl (Zantac -) 150 mg PO BID [facility] Last Admin: 12/24/16 21:59 Dose: 150 mg Tiotropium [place] (Spiriva -) 1 puff IH DAILY [facility] Last Admin: 12/24/16 09:39 Dose: 1 puff - Objective Vital Signs: Vital Signs Temperature 98.2 F 12/25/16 06:00 Pulse Rate 73 07/15/17 06:00 Respiratory Rate 20 12/25/16 06:00 Blood Pressure 144/66 12/25/16 06:00 O2 Sat by Pulse Oximetry (%) 100 12/25/16 06:00 Constitutional: Yes: Well Nourished, Calm Eyes: Yes: WNL HENT: Yes: WNL Neck: Yes: Supple Cardiovascular: Yes: Regular Rate and Rhythm, S1, S2 Respiratory: Yes: Diminished Gastrointestinal: Yes: Normal Bowel Sounds, Soft Extremities: Yes: WNL Edema: No Labs: CBC, BMP Problem List - Problems (1) COPD with acute exacerbation Code(s): J44.1 - CHRONIC OBSTRUCTIVE PULMONARY DISEASE W (ACUTE) EXACERBATION (2) Anxiety Code(s): F41.9 - ANXIETY DISORDER, UNSPECIFIED (3) Bladder cancer Code(s): C67.9 - MALIGNANT NEOPLASM OF BLADDER, UNSPECIFIED Qualifiers: Bladder location: unspecified site Qualified Code(s): C67.9 - Malignant neoplasm of bladder, unspecified (4) Acute and chronic respiratory failure with hypoxia Code(s): J96.21 - ACUTE AND CHRONIC RESPIRATORY FAILURE WITH HYPOXIA Assessment/Plan IMP ACUTE ON CHRONIC HYPOXEMIC RESPIRATORY FAILURE CLINICALLY IMPROVING COPD EXACERBATION ANXIETY HLD H/O BLADDER CA PLAN IV STEROIDS INHALED BRONCHODILATORS NASAL O2 ANXIOLYTICS NORMAL SALINE NASAL SPRAY DR S[facility]B Problem List - Problems (1) COPD with acute exacerbation Code(s): J44.1 - CHRONIC OBSTRUCTIVE PULMONARY DISEASE W (ACUTE) EXACERBATION (2) Anxiety Code(s): F41.9 - ANXIETY DISORDER, UNSPECIFIED (3) Bladder cancer Code(s): C67.9 - MALIGNANT NEOPLASM OF BLADDER, UNSPECIFIED Qualifiers: Bladder location: unspecified site Qualified Code(s): C67.9 - Malignant neoplasm of bladder, unspecified (4) Acute and chronic respiratory failure with hypoxia Code(s): J96.21 - ACUTE AND CHRONIC RESPIRATORY FAILURE WITH HYPOXIA
[2016-12-25] MEDS: methylPREDNISolone NA SUCC 40 MG/1 ML VIAL IVPB SCH ×2 (06:37→17:35)
[2016-12-25] MEDS ORDERED: PT OWN MED DRAWER 7, Y5N ONE (09:10)
[2016-12-25] MEDS: TIOTROPIUM BROMIDE 18 MCG/INH (DEVICE W/ 5 CAPSULES) IH SCH (09:23)
[2016-12-25] MEDS: ARFORMOTEROL TARTRATE 15 MCG/2 ML VIAL NEB SCH ×2 (09:23→21:54)
[2016-12-25] MEDS: HEPARIN NA (PORCINE) 5,000 UNITS/ML 1ML VIAL SQ SCH ×2 (09:23→21:53)
[2016-12-25] MEDS: RANITIDINE HCL 150 MG TABLET (FP) PO SCH ×2 (09:23→21:54)
[2016-12-25] MEDS: ALPRAZolam 0.25 MG TABLET PO PRN ×2 (09:24→17:35)
[2016-12-25] MEDS: ASPIRIN 81 MG CHEWABLE TABLETS PO SCH (09:24)
[2016-12-25] MEDS: DONEPEZIL HCL 5 MG TABLET (FP) PO SCH (09:24)
[2016-12-25] MEDS: ESCITALOPRAM OXALATE 10 MG TABLET (FP) PO SCH (09:24)
[2016-12-25] MEDS: BUDESONIDE/FORMETEROL FUMARATE 160/4.5 mcg INHALER IH SCH ×2 (09:30→21:54)
--- NOTE | 2016-12-25 11:05 | PN ---
Physical Exam: SUBJECTIVE: Patient seen and examined. Feels that her breathing has improved. OBJECTIVE: Vital Signs Period Temp Pulse Resp BP Sys/Almeida Pulse Ox Last 24 Hr 98.2 F-98.7 F 73-86 20-22 114-150/57-82 100-100 GENERAL: The patient is awake, alert, and fully oriented, in no acute distress. HEAD: Normal with no signs of trauma. EYES: PERRL, extraocular movements intact, sclera anicteric, conjunctiva clear. No ptosis. ENT: Ears normal, nares patent, oropharynx clear without exudates, moist mucous membranes. NECK: Trachea midline, full range of motion, supple. LUNGS: Mildly tachypneic. Breath sounds equal but diminished at bases, clear to auscultation bilaterally, no wheezes, no crackles, no accessory muscle use. HEART: Regular rate and rhythm, S1, S2 without murmur, rub or gallop. ABDOMEN: Soft, nontender, nondistended, normoactive bowel sounds, no guarding, no rebound, no hepatosplenomegaly, no masses. EXTREMITIES: 2+ pulses, warm, well-perfused, no edema. NEUROLOGICAL: Cranial nerves II through XII grossly intact. Normal speech, gait not observed. PSYCH: Normal mood, normal affect. SKIN: Warm, dry, normal turgor, no rashes or lesions noted Laboratory Results - last 24 hr 12/24/16 12/24/16 11:11 11:11 WBC 14.7 H D RBC 4.10 Hgb 13.1 Hct 37.3 MCV 91.0 MCH 32.0 MCHC 35.2 RDW 13.4 Plt Count 224 MPV 8.6 Neutrophils % 92.5 H Lymphocytes % 5.0 L D Monocytes % 1.7 L Eosinophils % 0.0 D Basophils % 0.8 Sodium 134 L Potassium 4.0 Chloride 102 Carbon Dioxide 25 Anion Gap 7 L BUN 16 Creatinine 0.7 Creat Clearance w eGFR > 60 Random Glucose 293 H D Calcium 9.0 Total Bilirubin 0.7 AST 25 D ALT 98 H D Alkaline Phosphatase 74 Total Protein 6.6 Albumin 4.1 Active Medications Generic Name Dose Route Start Last Admin Trade Name Freq PRN Reason Stop Dose Admin Acetaminophen 650 mg 12/23/16 19:08 Tylenol - PO Q6H PRN FEVER OR PAIN Albuterol Sulfate 1 amp 12/23/16 14:49 12/23/16 19:33 Ventolin 0.083% Nebulizer Soln - NEB 1 amp Q4H PRN Administration SHORT OF BREATH/WHEEZING Alprazolam 0.25 mg 12/23/16 19:08 12/25/16 09:24 Xanax - PO 0.25 mg Q8H PRN Administration ANXIETY Arformoterol Tartrate 1 amp 12/23/16 22:00 12/25/16 09:23 Brovana (Restricted To Pulmonology/Resp) - NEB 1 amp BID KAREN Administration Aspirin 81 mg 12/24/16 10:00 12/25/16 09:24 Asa - PO 81 mg DAILY KAREN Administration Atorvastatin Calcium 10 mg 12/23/16 22:00 12/24/16 21:59 Lipitor - PO 10 mg HS KAREN Administration Budesonide/Formoterol Fumarate 2 puff 12/24/16 10:29 12/24/16 21:59 Symbicort 160/4.5mcg - IH 2 inh Q12H KAREN Administration Donepezil HCl 5 mg 12/24/16 10:00 12/25/16 09:24 Aricept - PO 5 mg DAILY KAREN Administration Escitalopram Oxalate 10 mg 12/24/16 10:00 12/25/16 09:24 Lexapro - PO 10 mg DAILY KAREN Administration Heparin Sodium (Porcine) 5,000 unit 12/24/16 10:00 12/25/16 09:23 Heparin - SQ 5,000 unit BID KAREN Administration Methylprednisolone Sodium Succinate 40 mg 12/25/16 06:00 12/25/16 06:37 Solu-Medrol - IVPB 40 mg Q12H KAREN Administration Montelukast Sodium 10 mg 12/23/16 22:00 12/24/16 21:57 Singulair - PO 10 mg HS KAREN Administration Ranitidine HCl 150 mg 12/24/16 10:00 12/25/16 09:23 Zantac - PO 150 mg BID KAREN Administration Tiotropium [place] 1 puff 12/24/16 10:00 12/25/16 09:23 Spiriva - IH 1 puff DAILY KAREN Administration IMAGING chest xray: no acute pathology ASSESSMENT/PLAN: 1. 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 Low Cholesterol Diet DVT Prophylaxis - OOB - SCDs - zantac - Heparin SQ Dispo: Requires Inpatient Care, pt is requesting short term rehab at [facility] consulted Code Status: full code Visit type - Emergency Visit Emergency Visit: Yes ED Registration Date: 12/23/16 Care time: The patient presented to the Emergency Department on the above date and was hospitalized for further evaluation of their emergent condition. - New Patient This patient is new to me today: Yes Date on this admission: 12/25/16 - Critical Care Critical Care patient: No - Discharge Referral Referred to [facility] Med P.C.: No
[2016-12-25] MEDS: ALBUTEROL SO4 0.083% IH SOL 2.5 MG/3 ML VIAL.NEB. NEB PRN (17:34)
[2016-12-25] MEDS: ATORVASTATIN CA 10 MG TABLET (FP) PO SCH (21:54)
[2016-12-25] MEDS: MONTELUKAST NA 10 MG TABLET PO SCH (21:54)
[2016-12-26] MEDS: methylPREDNISolone NA SUCC 40 MG/1 ML VIAL IVPB SCH ×2 (05:43→18:09)
[2016-12-26] MEDS: HEPARIN NA (PORCINE) 5,000 UNITS/ML 1ML VIAL SQ SCH ×2 (09:13→21:30)
[2016-12-26] MEDS: ARFORMOTEROL TARTRATE 15 MCG/2 ML VIAL NEB SCH ×2 (09:13→21:30)
[2016-12-26] MEDS: DONEPEZIL HCL 5 MG TABLET (FP) PO SCH (09:13)
[2016-12-26] MEDS: ASPIRIN 81 MG CHEWABLE TABLETS PO SCH (09:13)
[2016-12-26] MEDS: ESCITALOPRAM OXALATE 10 MG TABLET (FP) PO SCH (09:13)
[2016-12-26] MEDS: RANITIDINE HCL 150 MG TABLET (FP) PO SCH (09:13)
[2016-12-26] MEDS: ALPRAZolam 0.25 MG TABLET PO PRN ×2 (09:13→18:09)
[2016-12-26] MEDS: ALBUTEROL SO4 0.083% IH SOL 2.5 MG/3 ML VIAL.NEB. NEB PRN ×2 (09:13→20:50)
[2016-12-26] MEDS: TIOTROPIUM BROMIDE 18 MCG/INH (DEVICE W/ 5 CAPSULES) IH SCH (09:16)
[2016-12-26] MEDS ORDERED: PT OWN MED DRAWER 7, Y5N ONE (09:18)
[2016-12-26 09:22] LABS: MCH 31.8 pg (25.7-33.7); MEAN CELL VOLUME 93.1 fl (80-96)
[2016-12-26 09:23] LABS: ANION GAP 7 (8-16); CALCIUM 8.8 mg/dl (8.4-10.2); CO2 28 mmol/L (22-28); CREATININE 0.8 mg/dl (0.6-1.3); GLUCOSE,RANDOM 286 mg/dl (74-106)
[2016-12-26 09:28] LABS: MCHC 34.1 g/dl (32.0-36.0); NEUTROPHILS 85.7 % (42.8-82.8); PLATELET COUNT 195 K/MM3 (134-434); RDW 13.7 % (11.6-15.6); WHITE BLOOD COUNT 13.5 K/mm3 (4.0-10.8)
--- NOTE | 2016-12-26 09:38 | PN ---
Physical Exam: SUBJECTIVE: Patient seen and examined. Feels dyspneic after walking to commode. OBJECTIVE: Vital Signs Period Temp Pulse Resp BP Sys/Almeida Pulse Ox Last 24 Hr 97.6 F-98.6 F 80-91 19-24 140-147/46-59 96-99 GENERAL: The patient is awake, alert, and fully oriented, in no acute distress. HEAD: Normal with no signs of trauma. EYES: PERRL, extraocular movements intact, sclera anicteric, conjunctiva clear. No ptosis. ENT: Ears normal, nares patent, oropharynx clear without exudates, moist mucous membranes. NECK: Trachea midline, full range of motion, supple. LUNGS: Mildly tachypneic. Breath sounds equal, clear to auscultation but diminished at bases. HEART: Regular rate and rhythm, S1, S2 without murmur, rub or gallop. ABDOMEN: Soft, nontender, nondistended, normoactive bowel sounds, no guarding, no rebound, no hepatosplenomegaly, no masses. EXTREMITIES: 2+ pulses, warm, well-perfused, no edema. NEUROLOGICAL: Cranial nerves II through XII grossly intact. Normal speech, gait not observed. PSYCH: Normal mood, normal affect. SKIN: Warm, dry, normal turgor, no rashes or lesions noted. Laboratory Results - last 24 hr 12/26/16 12/26/16 09:00 09:00 WBC 13.5 H RBC 4.04 Hgb 12.8 Hct 37.6 MCV 93.1 MCH 31.8 MCHC 34.1 RDW 13.7 Plt Count 195 MPV 9.0 Neutrophils % 85.7 H Lymphocytes % 8.2 D Monocytes % 4.1 D Eosinophils % 0.0 Basophils % 2.0 Sodium 135 L Potassium 4.5 Chloride 100 Carbon Dioxide 28 Anion Gap 7 L BUN 18 Creatinine 0.8 Random Glucose 286 H Calcium 8.8 Active Medications Generic Name Dose Route Start Last Admin Trade Name Freq PRN Reason Stop Dose Admin Acetaminophen 650 mg 12/23/16 19:08 Tylenol - PO Q6H PRN FEVER OR PAIN Albuterol Sulfate 1 amp 12/23/16 14:49 12/26/16 09:13 Ventolin 0.083% Nebulizer Soln - NEB 1 amp Q4H PRN Administration SHORT OF BREATH/WHEEZING Alprazolam 0.25 mg 12/23/16 19:08 12/26/16 09:13 Xanax - PO 0.25 mg Q8H PRN Administration ANXIETY Arformoterol Tartrate 1 amp 12/23/16 22:00 12/26/16 09:13 Brovana (Restricted To Pulmonology/Resp) - NEB 1 amp BID KAREN Administration Aspirin 81 mg 12/24/16 10:00 12/26/16 09:13 Asa - PO 81 mg DAILY KAREN Administration Atorvastatin Calcium 10 mg 12/23/16 22:00 12/25/16 21:54 Lipitor - PO 10 mg HS KAREN Administration Budesonide/Formoterol Fumarate 2 puff 12/24/16 10:29 12/25/16 21:54 Symbicort 160/4.5mcg - IH 2 inh Q12H KAREN Administration Donepezil HCl 5 mg 12/24/16 10:00 12/26/16 09:13 Aricept - PO 5 mg DAILY KAREN Administration Escitalopram Oxalate 10 mg 12/24/16 10:00 12/26/16 09:13 Lexapro - PO 10 mg DAILY KAREN Administration Heparin Sodium (Porcine) 5,000 unit 12/24/16 10:00 12/26/16 09:13 Heparin - SQ 5,000 unit BID KAREN Administration Methylprednisolone Sodium Succinate 40 mg 12/25/16 06:00 12/26/16 05:43 Solu-Medrol - IVPB 40 mg Q12H KAREN Administration Montelukast Sodium 10 mg 12/23/16 22:00 12/25/16 21:54 Singulair - PO 10 mg HS KAREN Administration Ranitidine HCl 150 mg 12/24/16 10:00 12/26/16 09:13 Zantac - PO 150 mg BID KAREN Administration Tiotropium [place] 1 puff 12/24/16 10:00 12/26/16 09:16 Spiriva - IH 1 puff DAILY KAREN Administration IMAGING CXR 12/23: No acute pathology ASSESSMENT/PLAN: 1. 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 CARD HLD - continue lipitor 3. Psych: Anxiety - Continue Xanax 4. Neuro Dementia - Continue Aricept 5. F/E/N - Replete electrolytes as needed -Low sodium/cholesterol diet 6. Ppx -OOB -Sqh -No indication for GI ppx Dispo: Requires inpatient care pending DAISY placement. FULL CODE Visit type - Emergency Visit Emergency Visit: Yes ED Registration Date: 12/23/16 Care time: The patient presented to the Emergency Department on the above date and was hospitalized for further evaluation of their emergent condition. - New Patient This patient is new to me today: No - Critical Care Critical Care patient: No - Discharge Referral Referred to [facility] Med P.C.: No
[2016-12-26] MEDS: BUDESONIDE/FORMETEROL FUMARATE 160/4.5 mcg INHALER IH SCH ×2 (10:30→21:32)
--- NOTE | 2016-12-26 19:46 | CONS ---
PULMONARY CONSULTATION DATE OF CONSULTATION: 12/23/2016 REFERRING PHYSICIAN: Piper Morris MD The patient is a 76-year-old white female known to me in previous hospitalization as well as office follow-up with past medical history of advanced COPD on home O2 , history of bladder CA status post chemotherapy wash, a history of anxiety, admitted to [facility] with complaint of 2-to-3-day history of increasing shortness of breath and dyspnea on exertion. Patient states she was doing well until the past couple days. In the hot weather, she started developing increasing shortness of breath and dyspnea on exertion. Denies any chest pains, palpitations. Denies any cough or wheezing. Denies any hemoptysis. Symptoms worsened. At which time, she presented to the emergency room. In the emergency room, she was on inhaled bronchodilators with some clinical improvement and transferred to the floor for further management. Patient denies any recent travel. There is no history of DVT or PE in the past. PAST MEDICAL HISTORY: Again includes COPD, advanced on home O2; bladder CA; anxiety; and hypercholesterolemia. REVIEW OF SYSTEMS: Positive dyspnea. Positive orthopnea. No chest pain. No palpitations. No cough. No fevers. No chills. No hemoptysis. No abdominal pain. No swelling or lower extremity edema. CURRENT MEDICATIONS: Include Spiriva, Solu-Medrol, albuterol, Brovana, Lipitor , and Singulair. PHYSICAL EXAMINATION: General: The patient is a healthy white female, thin, well developed, awake, alert, mildly dyspneic but in no acute respiratory distress. Vital Signs: She is currently afebrile. Blood pressure 143/51, respiratory rate is 22, O2 saturation is 98% on 2 L. HEENT: Normocephalic, atraumatic. Neck: Supple. Heart: Regular. S1, S2. Chest: Diminished breath sounds bilaterally. Abdomen: Soft. Bowel sounds are positive. Extremities: No cyanosis or edema. LABORATORY DATA: WBC is 10.6, hemoglobin 13.9, hematocrit 40.6, platelet count of 228,000. BUN is 14, creatinine is 0.7. Chest x-ray shows hyperinflated lung duggan, but no infiltrates and no effusions. IMPRESSION: 1. [id number] hypoxemic respiratory failure secondary to decompensated chronic obstructive pulmonary disease. 2. Anxiety. 3. History of bladder cancer. PLAN: IV steroids, inhaled bronchodilators, supplemental O2. Roseline [id number] MTDD
[2016-12-26] MEDS: ATORVASTATIN CA 10 MG TABLET (FP) PO SCH (21:31)
[2016-12-26] MEDS: MONTELUKAST NA 10 MG TABLET PO SCH (21:32)
[2016-12-26 23:24] VITALS: TEMP 97.6
[2016-12-27] MEDS: methylPREDNISolone NA SUCC 40 MG/1 ML VIAL IVPB SCH (05:40)
[2016-12-27 06:28] VITALS: BP 156/72; PULSE 79
[2016-12-27] MEDS: ALPRAZolam 0.25 MG TABLET PO PRN (06:56)
[2016-12-27] MEDS ORDERED: PT OWN MED DRAWER 7, Y5N ONE (09:21)
[2016-12-27] MEDS: ESCITALOPRAM OXALATE 10 MG TABLET (FP) PO SCH (09:24)
[2016-12-27] MEDS: HEPARIN NA (PORCINE) 5,000 UNITS/ML 1ML VIAL SQ SCH (09:24)
[2016-12-27] MEDS: DONEPEZIL HCL 5 MG TABLET (FP) PO SCH (09:24)
[2016-12-27] MEDS: ASPIRIN 81 MG CHEWABLE TABLETS PO SCH (09:24)
[2016-12-27] MEDS: ARFORMOTEROL TARTRATE 15 MCG/2 ML VIAL NEB SCH (09:24)
[2016-12-27] MEDS: TIOTROPIUM BROMIDE 18 MCG/INH (DEVICE W/ 5 CAPSULES) IH SCH (09:24)
--- NOTE | 2016-12-27 10:42 | DS ---
Physical Exam: SUBJECTIVE: Patient seen and examined, patient reports feeling better, denies any chest pain or shortness of breath. OBJECTIVE: Patient is a 76 y/o female with a PMHx of COPD. Who presents to the ED with increased SOB, CORTES x 2-3 days. Patient reports having to use her O2 during the day as well as night. patient was admitted last September for COPD exacerbation. Patient denies fever, chills, cough, CP, AP, N/V/D, constipation, dysuria. 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 ER course was notable for: (1) Chest Xray report- No acute pulmonary disease (2) WBC 10.6 Vital Signs Period Temp Pulse Resp BP Sys/Almeida Pulse Ox Last 24 Hr 97.6 F-98.6 F 79-85 20-21 150-156/57-72 98-99 PHYSICAL EXAM GENERAL: The patient is awake, alert, and fully oriented, in no acute distress. HEAD: Normal with no signs of trauma. EYES: PERRL, extraocular movements intact, sclera anicteric, conjunctiva clear. No ptosis. ENT: Ears normal, nares patent, oropharynx clear without exudates, moist mucous membranes. NECK: Trachea midline, full range of motion, supple. LUNGS: Breath sounds equal, clear to auscultation but diminished at bases. HEART: Regular rate and rhythm, S1, S2 without murmur, rub or gallop. ABDOMEN: Soft, nontender, nondistended, normoactive bowel sounds, no guarding, no rebound, no hepatosplenomegaly, no masses. EXTREMITIES: 2+ pulses, warm, well-perfused, no edema. NEUROLOGICAL: Cranial nerves II through XII grossly intact. Normal speech, gait not observed. PSYCH: Normal mood, normal affect. SKIN: Warm, dry, normal turgor, no rashes or lesions noted. LABS CBC WBC 13.5 K/mm3 (4.0-10.8) H 12/26/16 09:00 RBC 4.04 M/mm3 (3.60-5.2) 12/26/16 09:00 Hgb 12.8 GM/dl (10.7-15.3) 12/26/16 09:00 Hct 37.6 % (32.4-45.2) 12/26/16 09:00 MCV 93.1 fl (80-96) 12/26/16 09:00 MCH 31.8 pg (25.7-33.7) 12/26/16 09:00 MCHC 34.1 g/dl (32.0-36.0) 12/26/16 09:00 RDW 13.7 % (11.6-15.6) 12/26/16 09:00 Plt Count 195 K/MM3 (134-434) 12/26/16 09:00 MPV 9.0 fl (7.5-11.1) 12/26/16 09:00 Neutrophils % 85.7 % (42.8-82.8) H 12/26/16 09:00 Lymphocytes % 8.2 % (8-40) D 12/26/16 09:00 Monocytes % 4.1 % (3.8-10.2) D 12/26/16 09:00 Eosinophils % 0.0 % (0-4.5) 12/26/16 09:00 Basophils % 2.0 % (0-2.0) 12/26/16 09:00 CMP Sodium 135 mmol/L (136-145) L 12/26/16 09:00 Potassium 4.5 mmol/L (3.5-5.1) 12/26/16 09:00 Chloride 100 mmol/L (98-107) 12/26/16 09:00 Carbon Dioxide 28 mmol/L (22-28) 12/26/16 09:00 Anion Gap 7 (8-16) L 12/26/16 09:00 BUN 18 mg/dl (7-18) 12/26/16 09:00 Creatinine 0.8 mg/dl (0.6-1.3) 12/26/16 09:00 Creat Clearance w eGFR > 60 (>60) 12/24/16 11:11 Random Glucose 286 mg/dl (74-106) H 12/26/16 09:00 Calcium 8.8 mg/dl (8.4-10.2) 12/26/16 09:00 Total Bilirubin 0.7 mg/dl (0.2-1.0) 12/24/16 11:11 AST 25 U/L (10-42) D 12/24/16 11:11 ALT 98 U/L (10-40) H D 12/24/16 11:11 Alkaline Phosphatase 74 U/L (32-92) 12/24/16 11:11 Creatine Kinase 40 IU/L (26-140) 12/23/16 13:16 Troponin I < 0.03 ng/ml (0.03-0.50) L 12/23/16 13:16 B-Natriuretic Peptide 92.09 pg/ml (5-450) 12/23/16 13:16 Total Protein 6.6 g/dl (6.4-8.3) 12/24/16 11:11 Albumin 4.1 g/dl (3.5-5.0) 12/24/16 11:11 IMAGING CXR 12/23: No acute pathology HOSPITAL COURSE Patient was admitted from the emergency department for Acute on Chronic Hypoxemic Respiratory Failure, secondary to COPD Exacerbation. She was placed on solu-Medrol iv with taper. Sngulair, spiriva, brovana, and symbicort with prn albuterol nebulizers. Spo2 was keep above 92% with supplemental o2, pt home dose (2liters nc) Pulmonary consulted and following, Dr Deluca, pt's private pantograph setter. Patient is requesting pulmonary rehab placement. Patient has a pmh of HLD, lipitor was continued. Patient has a pmh of anxiety, xanax was continued. Patient has a pmh of dementia, Aricept was continued. PLAN - discharge to pulmonary rehab, pt is requesting cabrini - continue home meds - continue prednsione taper - resume regular low sodium diet Date of Admission:12/23/16 Date of Discharge: 12/27/16 Minutes to complete discharge: 45 Discharge Summary Reason For Visit: EXACERBATION COPD Current Active Problems Acute and chronic respiratory failure with hypoxia (Acute) COPD with acute exacerbation (Acute) Dementia (Acute) Condition: Improved - Instructions Diet, Activity, Other Instructions: resume regular low sodium diet continue all medication as prescribed continue taking prednisone daily Referrals: Pollo Deluca MD [Staff Physician] - Cameron Floyd MD [Staff Physician] - Disposition: LONG-TERM FACILITY - Home Medications Comprehensive Discharge Medication List: Ambulatory Orders Aspirin [ASA -] 81 mg PO DAILY 03/02/16 Montelukast Na [Singulair -] 10 mg PO HS #60 tablet 04/22/16 Escitalopram Oxalate 10 mg PO DAILY #0 tablet 09/17/16 Acetaminophen [Tylenol .Regular Strength -] 650 mg PO Q6H PRN #0 tablet Alprazolam [Xanax] 0.25 mg PO Q8H PRN #10 tablet MDD 3 tablets 09/24/16 Arformoterol Tartrate [Brovana -] 1 amp NEB BID #0 amp 09/24/16 Donepezil HCl [Aricept -] 5 mg PO DAILY #0 tablet 09/24/16 Prednisone 10 mg PO BID 12/23/16 This patient is new to me today: No Emergency Visit: Yes ED Registration Date: 12/23/16 Care time: The patient presented to the Emergency Department on the above date and was hospitalized for further evaluation of their emergent condition. Critical Care patient: No - Discharge Referral Referred to [facility] No Physician Referral: Cameron Floyd MD (Int Med)
[2016-12-27] MEDS ORDERED: predniSONE 20 MG TABLET (UD) PO ONE (12:15)
== END 2016-12-27 13:13 | DRG 189 ==
LOC: FER 12:26 → FM/S 14:51
PROVIDERS: ADMIT Internal Medicine; ATTEND Nurse Practitioner Family
DX: J96.21 Acute and chronic respiratory failure with hypoxia (principal); J44.1 Chronic obstructive pulmonary disease with (acute) exacerbation; Z99.81 Dependence on supplemental oxygen; Z85.51 Personal history of malignant neoplasm of bladder; R45.1 Restlessness and agitation; E78.00 Pure hypercholesterolemia, unspecified; F41.9 Anxiety disorder, unspecified; Z87.891 Personal history of nicotine dependence; E78.5 Hyperlipidemia, unspecified
CPT/HCPCS: 36415; 71020-TC; 80048; 80053; 81003; 81015; 82550; 83880; 84484; 85025; 87086; 93005; 94010; 94640; 97116-GP; 97161-GP; 99283-25; J1644

== ENCOUNTER 2017-07-28 21:29 | Emergency (ER) | payer OTHER, BC ==
[2017-07-28 21:37] VITALS: BP 138/65; PULSE 100; TEMP 98.6; BMI 26.4
--- NOTE | 2017-07-28 21:41 | PDOC ---
History of Present Illness - History of Present Illness Initial Comments: 07/28/17 21:42 The patient is a 77 year old female with history of hyperlipidemia, COPD, bladder CA, who sent to the ED from her [place] for abdomen CT to r/o SBO. Per [place] records, the patient has been complaining of diffuse abdominal pain with associated nausea and abdominal distention. She states she has been "spitting up " small amounts. No fever or chills. No chest pain or shortness of breath. PCP: Dr. Floyd General: No fevers or chills, no weakness, no weight loss HEENT: No change in vision. No sore throat,. No ear pain CardioVascular: No chest pain or shortness of breath Respiratory:No cough, or wheezing. Gastrointestinal: +Diffuse abdominal pain, nausea, vomiting. No diarrhea or constipation, No rectal bleeding Genitourinary: No dysuria, hematuria, or frequency Musculoskeletal: No joint or muscle pain or swelling Neurologic: No headache, vertigo, dizziness or loss of consciousness Psychiatric: nor depression Skin: No rashes or easy bruising Endocrine: no increased thirst or abnormal weight change Allergic: no skin or latex allergy All other systems reviewed and normal Adult Exam: General: Well-nourished well-developed individual, no acute distress HEENT: Throat: Normal, tonsils normal, no erythema or exudate Neck: Supple, no meningeal signs, no lymphadenopathy Eyes::Pupils equal reactive and round, extraocular motion intact Chest: Nontender to palpation Cardiac: S1-S2 normal, regular rate and rhythm, no murmurs rubs or gallops Respiratory: Lungs clear to auscultation bilateral Abdomen: Abdomen is distended. Bowel sounds are present but slightly diminished. Diffuse lower abdominal tenderness to palpation. Extremities: Warm, dry, no cyanosis, clubbing, or edema Skin: No rashes Neuro: Alert and oriented x3, nonfocal exam, grossly intact, normal gait Psych: Normal mood and affect 07/28/17 21:46 Documentation prepared by Josi Sorto, acting as medical dir for Dominic Momin MD. <Josi Sorto - Last Filed: 07/28/17 21:41> - General History Source: Patient Exam Limitations: No Limitations - History of Present Illness Initial Comments: A portion of this note was documented by scribe services under my direction. I have reviewed the details of the note, within reason, and agree with the documentation. The case summary and management plan written by me. Medical decision making this is a 77-year-old female who comes in from a local custodial with orders for a CT scan. Patient has had some abdominal distention and nausea but no vomiting. Patient had some plain films that were negative for any dilated loops of bowel but did show some constipation. Patient otherwise had some mild tenderness on palpation. We will obtain a CT with IV contrast CBC and comp were sent Will reassess and reevaluate 07/28/17 22:37 Reevaluation patient feeling nauseous and has a headache so we will medicate with some Zofran and IV Tylenol. BUN and creatinine are within normal limits so we'll call in surveying technician to do a CAT scan with IV contrast but no by mouth contrast 07/29/17 00:37 CAT scan shows a large amount of retained fecal material In addition to that it is concerning for some ascites with possible underlying malignancy involving the omentum and liver. Patient's daughter was in the emergency room and I gave her a copy of the CAT scan. Patient daughter is her health care proxy and wants to discuss with the siblings whether or not they want to tell her mother about the malignancy. Patient's CAT scan also showed a large amount of retained fecal material that is most likely also contributing to her abdominal distention. Patient is tolerating by mouth's is comfortable here in the emergency room and prefers to go back to the custodial. Patient will be discharged back to the custodial. <Dominic Momin I - Last Filed: 07/29/17 00:44> - General Chief Complaint: Pain Stated Complaint: ABDOMINAL PAIN Time Seen by Provider: 07/28/17 21:32 Past History <Josi Sorto - Last Filed: 07/28/17 21:41> - Past Medical History Anemia: No Asthma: No Cancer: Yes (BLADDER CANCER) Cardiac Disorders: Yes CVA: No COPD: Yes (HOME O2) CHF: No Dementia: No Diabetes: No GI Disorders: No Disorders: Yes (BLADDER CANCER treated with chemo wash) HTN: No Hypercholesterolemia: Yes Liver Disease: No Psychiatric Problems: Yes (anxiety) Seizures: No Thyroid Disease: No - Surgical History Abdominal Surgery: No Appendectomy: Yes ( CHILD) Cardiac Surgery: No Cholecystectomy: No Lung Surgery: No Neurologic Surgery: No Orthopedic Surgery: Yes (LEFT FOOT SURGERY, r hip surgery) - Family Disease History Family Disease History: Heart Disease: Mother - Reproductive History Dysfunctional Uterine Bleeding: No - Immunization History Immunization Up to Date: Yes - Suicide/Smoking/Psychosocial Hx Smoking Status: No Smoking History: Former smoker Years of Tobacco Use: 20 Have you smoked in the past 12 months: Yes Number of Cigarettes Smoked Daily: 1 If you are a former smoker, when did you quit?: 2015 Cigars Per Day: 0 'Breaking Loose' booklet given: 04/17/16 Hx Alcohol Use: No Drug/Substance Use Hx: No Substance Use Type: None Hx Substance Use Treatment: No <Dominic Momin I - Last Filed: 07/29/17 00:44> - Past Medical History Allergies/Adverse Reactions: Allergies Allergy/AdvReac Type Severity Reaction Status Date / Time Penicillins Allergy Verified 12/23/16 12:29 strawberry Allergy Verified 12/23/16 12:29 Home Medications: Ambulatory Orders Aspirin [ASA -] 81 mg PO DAILY 03/02/16 Montelukast Na [Singulair -] 10 mg PO HS #60 tablet 04/22/16 Escitalopram Oxalate 10 mg PO DAILY #0 tablet 09/17/16 Acetaminophen [Tylenol .Regular Strength -] 650 mg PO Q6H PRN #0 tablet Alprazolam [Xanax] 0.25 mg PO Q8H PRN #10 tablet MDD 3 tablets 09/24/16 Arformoterol Tartrate [Brovana -] 1 amp NEB BID #0 amp 09/24/16 Donepezil HCl [Aricept -] 5 mg PO DAILY #0 tablet 09/24/16 Albuterol 0.083% Nebulizer Chela [Ventolin 0.083% Nebulizer Soln -] 1 amp NEB Q4H PRN #0 amp 12/27/16 Budesonide/Formeterol Fumarate [SYMBICORT 160/4.5mcg -] 2 puff IH Q12H inhaler 12/27/16 Ranitidine [Zantac -] 150 mg PO BID tablet 12/27/16 predniSONE [Deltasone -] 5 mg PO ASDIR #32 tab 12/27/16 *Physical Exam - Vital Signs Last Vital Signs Temp Pulse Resp BP Pulse Ox 98.6 F 100 H 18 138/65 97 07/28/17 21:30 07/28/17 21:30 07/28/17 21:30 07/28/17 21:30 07/28/17 21:30 <Josi Sorto - Last Filed: 07/28/17 21:41> ED Treatment Course - LABORATORY CBC & Chemistry Diagram: 07/28/17 21:51 07/28/17 21:51 <Dominic Momin I - Last Filed: 07/29/17 00:44> *DC/Admit/Observation/Transfer <Josi Sorto - Last Filed: 07/28/17 21:41> - Discharge Dispostion Admit: No <Dominic Momin I - Last Filed: 07/29/17 00:44> Diagnosis at time of Disposition: GI malignancy Constipation Qualifiers: Constipation type: unspecified constipation type Qualified Code(s): K59.00 - Constipation, unspecified - Discharge Dispostion Disposition: HOME Condition at time of disposition: Stable - Referrals Referrals: Edmundo Lopez [Primary Care Provider] - - Patient Instructions Additional Instructions: Return to the emergency department immediately with ANY new, persistent or worsening symptoms. Continue any medications as previously prescribed by your physician. You should follow up with your primary doctor as soon as possible regarding today's emergency department visit. . Please make sure your doctor reviews the results of your emergency evaluation. Thank you for coming to the Emergency Department today for your care. It was a pleasure to see you today. Please note that your evaluation is INCOMPLETE until you follow-up with your doctor. - Post Discharge Activity
[2017-07-28 22:11] LABS: BASO % 2.5 % (0-2.0); EOS % 0.1 % (0-4.5); HEMATOCRIT 33.5 % (32.4-45.2); HEMOGLOBIN 11.3 GM/dl (10.7-15.3); LYMPH % 6.8 % (8-40); MCH 27.7 pg (25.7-33.7); MCHC 33.6 g/dl (32.0-36.0); MEAN CELL VOLUME 82.3 fl (80-96); MEAN PLT VOLUME 7.6 fl (7.5-11.1); MONO % 6.4 % (3.8-10.2); NEUT % 84.2 % (42.8-82.8); PLATELET COUNT 547 K/MM3 (134-434); RBC 4.07 M/mm3 (3.60-5.2); RDW 14.6 % (11.6-15.6); WHITE BLOOD COUNT 9.2 K/mm3 (4.0-10.8)
[2017-07-28 22:19] LABS: ALBUMIN 2.6 g/dl (3.5-5.0); ALK PHOS 74 U/L (32-92); ANION GAP 9 (8-16); BILIRUBIN,TOTAL 0.3 mg/dl (0.2-1.0); BLOOD UREA NITROGEN 11 mg/dl (7-18); CALCIUM 8.1 mg/dl (8.4-10.2); CHLORIDE 96 mmol/L (98-107); CO2 30 mmol/L (22-28); GLUCOSE,RANDOM 111 mg/dl (74-106); POTASSIUM 4.5 mmol/L (3.5-5.1); SGOT/AST 27 U/L (10-42); SGPT/ALT 11 U/L (10-40); SODIUM 135 mmol/L (136-145); TOT PROT 6.3 g/dl (6.4-8.3)
[2017-07-28] MEDS ORDERED: ACETAMINOPHEN 500 MG TABLET (FP) PO ONE (22:24)
[2017-07-28 22:27] LABS: CREATININE 0.5 mg/dl (0.6-1.3)
[2017-07-28] MEDS ORDERED: ACETAMINOPHEN 1000 MG/100 ML VIAL (NON FORMULARY) IVPB ONE (22:34)
[2017-07-28] MEDS ORDERED: ONDANSETRON 4 MG/2 ML VIAL IVPB ONE (22:34)
[2017-07-28] MEDS ORDERED: ONDANSETRON 4 MG/2 ML VIAL ONE (22:48)
[2017-07-28] MEDS ORDERED: ACETAMINOPHEN INJECTION 100 ML IVPB ONE (22:48)
== END 2017-07-29 01:26 | disposition home or self-care (01) ==
LOC: FER 21:29
PROC: 3E033NZ Introduction of Analgesics, Hypnotics, Sedatives into Peripheral Vein, Percutaneous Approach (ICD-10-PCS; principal; 2017-07-28)
PROC: 3E033GC Introduction of Other Therapeutic Substance into Peripheral Vein, Percutaneous Approach (ICD-10-PCS; 2017-07-28)
DX: K59.00 Constipation, unspecified (principal); C80.1 Malignant (primary) neoplasm, unspecified; E78.5 Hyperlipidemia, unspecified; J44.9 Chronic obstructive pulmonary disease, unspecified; Z85.51 Personal history of malignant neoplasm of bladder
CPT/HCPCS: 36415; 74177-TC; 80053; 85025; 99282-25